=== PATIENT | female | born 1960 | race Caucasian/White ===

== ENCOUNTER 2018-08-20 19:55 | Emergency (ER) | payer BC, SELFPAY ==
[2018-08-20 20:00] VITALS: BP 161/66; PULSE 78; RESP 18; TEMP 36.6; O2SAT 96
--- NOTE | 2018-08-20 20:38 | W.ED.GENAD ---
Discharge Plan Disposition Patient Disposition: HOME Condition: Good Discharge Details Chief Complaint: RespSymp Clinical Impression: Upper respiratory infection, viral Primary Care Provider: Brittney Mitchell ED Provider: Cristian Miranda Meds and New Rx's Prescriptions: New albuterol sulfate 90 mcg/actuation HFA aerosol inhaler 2 puff IH Q6H PRN (Reason: shortness of breath) Qty: 8 RF: 0 Continue glucosamine HOt-lcn-drwckowsuc 1 EACH tablet 1 ea PO DAILY RF: 0 blood sugar diagnostic [FreeStyle Lite Strips] 1 EACH strip 1 ea Miscellaneous DAILY Qty: 100 RF: 4 naproxen 500 MG tablet 500 mg PO Q12H PRN Qty: 60 RF: 2 lancets [FreeStyle Lancets] 1 EACH misc 1 ea Miscellaneous DAILY Qty: 100 RF: 4 cetirizine 10 MG tablet 10 mg PO DAILY Qty: 30 RF: 3 omeprazole 40 MG capsule,delayed release(DR/EC) 40 mg PO DAILY Qty: 90 RF: 4 levothyroxine 50 MCG tablet 50 mcg PO DAILY Qty: 90 RF: 4 metformin 500 MG tablet 500 mg PO BID Qty: 180 RF: 3 pravastatin 20 MG tablet 20 mg PO DAILY Qty: 90 RF: 3 mometasone [Nasonex] 17 GM spray,non-aerosol 2 spry NU PRN PRNRF: 0 Discharge Instructions Instructions: Upper Respiratory Infection (ED) Additional Instructions: EKG, chest x-ray, laboratory studies look fine. Probably have a viral URI. You may use the albuterol inhaler as needed for cough/shortness of breath. Use Motrin or Tylenol for pain as needed. Follow-up with primary care next week if not better. Return to ED if worse. Stand Alone Forms: Work Release Referrals: Brittney Mitchell NP [Primary Care Provider] - Discharge Data Discharge Date/Time-TO BE ENTERED AT DEPARTURE: 08/20/18 23:50 Medical Decision Making Patient presenting with what sounds like URI symptoms likely viral. However, she is complaining of shortness of breath and pleuritic pain. She is also diabetic. Elected to check labs including d-dimer and troponin. Initial EKG that was done was abnormal but looked similar to EKG of another patient who had the same machine used. When using a different machine the patient's EKG was essentially normal and unchanged from previous. She was given a DuoNeb treatment which helped. She was sent for chest x-ray which is read as negative. Laboratory studies show a negative d-dimer and a negative troponin and other labs ok. Potassium a little low. She did feel that DuoNeb treatment helped with her breathing. She will be sent home with instructions to use an albuterol inhaler every 4-6 hours as needed. Pukg-ehu-lcmeong cold medicine for symptoms. Rest and stay hydrated. Follow-up with primary care if not better next week. Return to ED if worse. Lab Data Lab results reviewed: Yes I reviewed the patient's lab results. ECG Data Attestation: I personally reviewed and interpreted this ECG (s) as follows: Interpretation: Initial EKG was suggestive of ST depression in the lateral limb leads with some elevation and biphasic T waves precordially. However, this EKG looks strangely similar to EKG of another patient. EKG was obtained with a different machine this EKG showed sinus rhythm at 83 with normal axis and intervals and some mild nonspecific ST changes which were unchanged from previous EKG. HPI General Mode of arrival: ambulatory. Date/Time Provider Initiated Documentation: 08/20/18 20:13. Limitations to Documentation: no limitations. Information obtained by: patient. HPI Narrative: Patient presents to ED with complaints of sinus pressure, congestion, cough, shortness of breath. She does not think she has had a fever but is not sure. She denies any sputum production. She does have a little bit of a sore throat. She has chest pain with cough and deep breathing. She feels a little short of breath and cannot take a deep breath. She denies any abdominal pain or GI symptoms. She denies any leg pain or swelling. She has no previous history of clots. She is not a smoker. She does not have a history of asthma. Related Data Home Medications Medication Instructions Recorded Confirmed glucosamine [id number] 1 ea PO DAILY 03/27/14 08/20/18 blood sugar diagnostic [FreeStyle #100 strip 11/25/15 08/20/18 Lite Strips] lancets [FreeStyle Lancets] #100 ea 11/25/15 08/20/18 naproxen 500 mg PO Q12H PRN #60 tab-cap 11/25/15 08/20/18 cetirizine 10 mg PO DAILY #30 tab-cap 12/18/17 08/20/18 omeprazole 40 mg PO DAILY #90 tab-cap 12/18/17 08/20/18 levothyroxine 50 mcg PO DAILY #90 tab 12/24/17 08/20/18 metformin 500 mg PO BID #180 tab-cap 12/24/17 08/20/18 pravastatin 20 mg PO DAILY #90 tab-cap 01/09/18 08/20/18 albuterol sulfate 2 puff IH Q6H PRN #8 gm 08/20/18 mometasone [Nasonex] 2 spry NU PRN PRN 08/20/18 08/20/18 Previous Rx's Medication Instructions Recorded cetirizine 10 mg PO DAILY #30 tab-cap 12/18/17 omeprazole 40 mg PO DAILY #90 tab-cap 12/18/17 levothyroxine 50 mcg PO DAILY #90 tab 12/24/17 metformin 500 mg PO BID #180 tab-cap 12/24/17 pravastatin 20 mg PO DAILY #90 tab-cap 01/09/18 albuterol sulfate 2 puff IH Q6H PRN #8 gm 08/20/18 Allergies Allergy/AdvReac Type Severity Reaction Status Date / Time amoxicillin trihydrate Allergy Severe Anaphylaxsi Unverified 08/20/18 23:34 [From Augmentin] s Egg Derived Allergy Severe Topical Unverified 08/20/18 23:34 Irritation Fish Containing Products Allergy Severe Anaphylaxsi Unverified 08/20/18 23:34 s iodine Allergy Severe Anaphylaxsi Unverified 08/20/18 23:34 s Penicillins Allergy Severe Anaphylaxsi Unverified 08/20/18 23:34 s potassium clavulanate Allergy Severe Anaphylaxsi Unverified 08/20/18 23:34 [From Augmentin] s shellfish derived Allergy Severe Anaphylaxsi Unverified 08/20/18 23:34 s Tetanus Vaccines and Toxoid Allergy Severe ARM Unverified 08/20/18 23:34 [Tetanus Vaccines \E&E\ SWELLING Toxoid] fexofenadine HCl Allergy Intermediate eye Unverified 08/20/18 23:34 [From Tiffani] swelling Sulfa (Sulfonamide Allergy Intermediate Swelling/Ed Unverified 08/20/18 23:34 Antibiotics) zulay venom-honey bee Allergy Intermediate Swelling/Ed Unverified 08/20/18 23:34 zulay codeine AdvReac Severe upset Unverified 08/20/18 23:34 stomach, dizzy lisinopril AdvReac Severe COUGH Unverified 08/20/18 23:34 fish Allergy Severe Anaphylaxsi Uncoded 08/20/18 23:34 s General Stated Complaint: RespSymp HERMAN: 3 Review of Systems Constitutional Denies chills, Reports fatigue, Denies fever(s), Denies headache(s), Denies malaise and Denies weakness Eyes Denies change in vision, Denies eye discharge and Denies eye pain ENT Denies otalgia, Denies facial pain, Denies headache(s), Denies hoarseness, Reports nasal congestion, Reports post nasal drip, Reports sinus pressure and Denies sore throat Cardiovascular Reports chest pain (with cough/deep breath), Denies syncope, Denies pedal edema, Denies edema, Denies palpitations and Reports dyspnea Respiratory Reports chest congestion, Reports cough and Reports dyspnea Gastrointestinal Denies abdominal pain, Denies nausea and Denies vomiting Musculoskeletal Denies back pain, Denies myalgias, Denies arthralgias and Denies numbness Integumentary/Breasts Denies rash Neurologic Denies syncope, Denies headache(s), Denies numbness and Denies weakness Endocrine Reports fatigue and Denies palpitations PFSH Family History Mother Aneurysm Cerebrovascular accident Father Neoplasm Brother Diabetes Essential hypertension Hyperlipidemia Cerebrovascular accident Grandfather Diabetes Heart disease Myocardial infarction Grandfather Diabetes Essential hypertension Myocardial infarction Grandmother Essential hypertension Mental disorder Cerebrovascular accident Grandmother Emphysema lung Medical History Hypothyroid (Chronic) Diabetes GERD (gastroesophageal reflux disease) Hyperlipidemia associated with type 2 diabetes mellitus Hypertension Social History Smoking/Tobacco Use Status: Never Surgical History Cholecystectomy (~1989) ELBOW SURGERY (~1994) WRIST SURGERY (~1986) Exam Const General: cooperative and comfortable Orientation: alert and oriented x3 HENMT Head: normocephalic and atraumatic Ears: TM's normal bilaterally General nose exam: external nose normal Mouth: oral mucosae normal Throat: posterior oropharynx normal Eyes Conjunctivae: conjunctivae normal Neck Neck: normal visual inspection, trachea midline and supple Lymphatic: no lymphadenopathy noted Resp Effort & Inspection: normal respiratory effort Auscultation: clear to auscultation bilaterally Cardio Rate: regular rate Rhythm: regular rhythm Heart Sounds: S1 normal and S2 normal GI Palpation: soft, not firm and nontender Skin General skin exam: no rashes or lesions noted Neuro General: alert, oriented x3, CN's II-XI intact bilaterally and normal sensation to monofilament Extrem General: no calf tenderness Course Vital Signs Temperature 97.9 F 08/20/18 20:00 Pulse 78 08/20/18 20:00 Respiratory Rate 18 08/20/18 20:00 Blood Pressure 161/66 H 08/20/18 20:00 Pulse Oximetry 96 08/20/18 20:00 Temperature 97.9 F 08/20/18 20:00 Temperature Source Skin 08/20/18 20:00 Pulse 78 08/20/18 20:00 Respiratory Rate 18 08/20/18 20:00 Respiratory Effort 08/20/18 20:07 Respiratory Depth Normal 08/20/18 20:07 Blood Pressure 161/66 H 08/20/18 20:00 Blood Pressure Position Sitting 08/20/18 20:00 Pulse Oximetry 96 08/20/18 20:00 Oxygen Delivery Method Room Air 08/20/18 20:00 Oxygen Flow Rate 0 08/20/18 20:00
--- NOTE | 2018-08-20 21:18 | DI.RAD_ITS ---
SYMPTOMS/DIAGNOSIS: CHEST PAIN, SHORTNESS OF BREATH, COUGH PA AND LATERAL CHEST: Comparison is made with January,. The heart is mildly enlarged, unchanged. The lungs are suboptimally inflated but appear clear. No infiltrate , effusion or pulmonary edema is seen. IMPRESSION: Cardiomegaly, no acute abnormality.
[2018-08-20 21:36] LABS: Abs Immature Grans 0.01 k/cumm (0.0-0.09); Absolute Basophil Count 0.02 k/cumm (0.0-0.2); Absolute Eosinophil Count 0.29 k/cumm (0.0-0.7); Absolute Lymphocyte Count 1.26 k/cumm (1.2-3.4); Absolute Monocyte Count 0.58 k/cumm (0.11-0.7); Absolute Neutrophil Count 6.11 k/cumm (1.2-6.7); Basophils % 0.2; Eosinophils % 3.5; HGB 13.5 g/dL (12.0-15.5); Immature Grans % 0.1; Lymphocytes % 15.2; Mean Corp. HGB Concentration 33.8 g/dL (32.0-36.0); Mean Corpuscular Hemoglobin 28.7 pg (27.0-33.0); Mean Corpuscular Volume 85.1 fL (80-95); Mean Platelet Volume 11.6 fL (8.0-11.0); Platelet Count 150 x1000/uL (130-400); RBC Distribution Width 13.2 % (11.7-14.6); White Blood Cell Count 8.27 k/cumm (4.4-10.8)
[2018-08-20 21:50] LABS: Anion Gap 10.3 mmol/L (3-11); BUN 14 mg/dL (7-18); CO2 28.7 mmol/L (21.0-32.0); CREATININE 0.73 mg/dL (0.55-1.02); Calcium 8.9 mg/dL (8.5-10.1); Chloride 98 mmol/L (98-107); Glucose 193 mg/dL (70-100); Potassium 3.1 mmol/L (3.5-5.1); Sodium 137 mmol/L (136-145)
--- NOTE | 2018-08-20 21:59 | DI.VRAD_ITS ---
EXAM: XR Chest, 2 Views EXAM DATE/TIME: 08/20/2018 9:20 PM CLINICAL HISTORY: 58 years old, female; Signs and symptoms; Other: Cp/sob, cough TECHNIQUE: XR of the chest, 2 views. COMPARISON: CR CHEST 2 VIEWS PA,LAT 02/25/2018 11:42 AM FINDINGS: Lungs: Clear lungs. Pleural space: No pneumothorax. No sizable pleural effusion. Heart/Mediastinum: No cardiomegaly. Bones/joints: Unremarkable. IMPRESSION: Clear lungs. Dictated and Authenticated by: Noé Monroe MD. Ordering:MARSHALL VARGAS MD
[2018-08-20 22:02] LABS: Troponin I < 0.02 ng/mL (0.00-0.06)
[2018-08-20 22:07] VITALS: RESP 8
[2018-08-20] MEDS: Ibuprofen 600 MG TAB PO (22:07)
[2018-08-20] MEDS: Albuterol/Ipratropium 3 ML UPD VIAL UPD (22:07)
[2018-08-20 22:41] LABS: D-Dimer 281 ng/mlFEU (<500)
[2018-08-20] MEDS: Albuterol HFA 8 GM 60 PUFF INH IH (23:42)
--- NOTE | 2018-08-20 23:46 | ED.GENADUL_ITS ---
Discharge Plan Disposition Patient Disposition: HOME Condition: Good Discharge Details Chief Complaint: RespSymp Clinical Impression: Upper respiratory infection, viral Primary Care Provider: Brittney Mitchell ED Provider: Cristian Miranda Meds and New Rx's Prescriptions: New albuterol sulfate 90 mcg/actuation HFA aerosol inhaler 2 puff IH Q6H PRN (Reason: shortness of breath) Qty: 8 RF: 0 Continue glucosamine [id number]-cbo-onveqrmksb 1 EACH tablet 1 ea PO DAILY RF: 0 blood sugar diagnostic [FreeStyle Lite Strips] 1 EACH strip 1 ea Miscellaneous DAILY Qty: 100 RF: 4 naproxen 500 MG tablet 500 mg PO Q12H PRN Qty: 60 RF: 2 lancets [FreeStyle Lancets] 1 EACH misc 1 ea Miscellaneous DAILY Qty: 100 RF: 4 cetirizine 10 MG tablet 10 mg PO DAILY Qty: 30 RF: 3 omeprazole 40 MG capsule,delayed release(DR/EC) 40 mg PO DAILY Qty: 90 RF: 4 levothyroxine 50 MCG tablet 50 mcg PO DAILY Qty: 90 RF: 4 metformin 500 MG tablet 500 mg PO BID Qty: 180 RF: 3 pravastatin 20 MG tablet 20 mg PO DAILY Qty: 90 RF: 3 mometasone [Nasonex] 17 GM spray,non-aerosol 2 spry NU PRN PRNRF: 0 Discharge Instructions Instructions: Upper Respiratory Infection (ED) Additional Instructions: EKG, chest x-ray, laboratory studies look fine. Probably have a viral URI. You may use the albuterol inhaler as needed for cough/shortness of breath. Use Motrin or Tylenol for pain as needed. Follow-up with primary care next week if not better. Return to ED if worse. Stand Alone Forms: Work Release Referrals: Brittney Mitchell NP [Primary Care Provider] - Discharge Data Discharge Date/Time-TO BE ENTERED AT DEPARTURE: 08/20/18 23:50 Medical Decision Making Patient presenting with what sounds like URI symptoms likely viral. However, she is complaining of shortness of breath and pleuritic pain. She is also diabetic. Elected to check labs including d-dimer and troponin. Initial EKG that was done was abnormal but looked similar to EKG of another patient who had the same machine used. When using a different machine the patient's EKG was essentially normal and unchanged from previous. She was given a DuoNeb treatment which helped. She was sent for chest x-ray which is read as negative. Laboratory studies show a negative d-dimer and a negative troponin and other labs ok. Potassium a little low. She did feel that DuoNeb treatment helped with her breathing. She will be sent home with instructions to use an albuterol inhaler every 4-6 hours as needed. Over-the- counter cold medicine for symptoms. Rest and stay hydrated. Follow-up with primary care if not better next week. Return to ED if worse. Lab Data Lab results reviewed: Yes I reviewed the patient's lab results. ECG Data Attestation: I personally reviewed and interpreted this ECG (s) as follows: Interpretation: Initial EKG was suggestive of ST depression in the lateral limb leads with some elevation and biphasic T waves precordially. However, this EKG looks strangely similar to EKG of another patient. EKG was obtained with a different machine this EKG showed sinus rhythm at 83 with normal axis and intervals and some mild nonspecific ST changes which were unchanged from previous EKG. HPI General Mode of arrival: ambulatory . Date/Time Provider Initiated Documentation: 08/20/18 20:13 . Limitations to Documentation: no limitations . Information obtained by: patient . HPI Narrative: Patient presents to ED with complaints of sinus pressure, congestion, cough, shortness of breath. She does not think she has had a fever but is not sure. She denies any sputum production. She does have a little bit of a sore throat. She has chest pain with cough and deep breathing. She feels a little short of breath and cannot take a deep breath. She denies any abdominal pain or GI symptoms. She denies any leg pain or swelling. She has no previous history of clots. She is not a smoker. She does not have a history of asthma. Related Data Home Medications Medication Instructions Recorded Confirmed glucosamine [id number]-qblwopujnv 1 ea PO DAILY 03/27/14 08/20/18 blood sugar diagnostic [FreeStyle #100 strip 11/25/15 08/20/18 Lite Strips] lancets [FreeStyle Lancets] #100 ea 11/25/15 08/20/18 naproxen 500 mg PO Q12H PRN #60 tab-cap 11/25/15 08/20/18 cetirizine 10 mg PO DAILY #30 tab-cap 12/18/17 08/20/18 omeprazole 40 mg PO DAILY #90 tab-cap 12/18/17 08/20/18 levothyroxine 50 mcg PO DAILY #90 tab 12/24/17 08/20/18 metformin 500 mg PO BID #180 tab-cap 12/24/17 08/20/18 pravastatin 20 mg PO DAILY #90 tab-cap 01/09/18 08/20/18 albuterol sulfate 2 puff IH Q6H PRN #8 gm 08/20/18 mometasone [Nasonex] 2 spry NU PRN PRN 08/20/18 08/20/18 Previous Rx's Medication Instructions Recorded cetirizine 10 mg PO DAILY #30 tab-cap 12/18/17 omeprazole 40 mg PO DAILY #90 tab-cap 12/18/17 levothyroxine 50 mcg PO DAILY #90 tab 12/24/17 metformin 500 mg PO BID #180 tab-cap 12/24/17 pravastatin 20 mg PO DAILY #90 tab-cap 01/09/18 albuterol sulfate 2 puff IH Q6H PRN #8 gm 08/20/18 Allergies Allergy/AdvReac Type Severity Reaction Status Date / Time amoxicillin trihydrate Allergy Severe Anaphylaxsi Unverified 08/20/18 23:34 [From Augmentin] s Egg Derived Allergy Severe Topical Unverified 08/20/18 23:34 Irritation Fish Containing Products Allergy Severe Anaphylaxsi Unverified 08/20/18 23:34 s iodine Allergy Severe Anaphylaxsi Unverified 08/20/18 23:34 s Penicillins Allergy Severe Anaphylaxsi Unverified 08/20/18 23:34 s potassium clavulanate Allergy Severe Anaphylaxsi Unverified 08/20/18 23:34 [From Augmentin] s shellfish derived Allergy Severe Anaphylaxsi Unverified 08/20/18 23:34 s Tetanus Vaccines and Toxoid Allergy Severe ARM Unverified 08/20/18 23:34 [Tetanus Vaccines \E&E\ SWELLING Toxoid] fexofenadine HCl Allergy Intermediate eye Unverified 08/20/18 23:34 [From Tiffani] swelling Sulfa (Sulfonamide Allergy Intermediate Swelling/Ed Unverified 08/20/18 23:34 Antibiotics) zulay venom-honey bee Allergy Intermediate Swelling/Ed Unverified 08/20/18 23:34 zulay codeine AdvReac Severe upset Unverified 08/20/18 23:34 stomach, dizzy lisinopril AdvReac Severe COUGH Unverified 08/20/18 23:34 fish Allergy Severe Anaphylaxsi Uncoded 08/20/18 23:34 s General Stated Complaint: RespSymp HERMAN: 3 Review of Systems Constitutional Denies chills, Reports fatigue, Denies fever(s), Denies headache(s), Denies malaise and Denies weakness Eyes Denies change in vision, Denies eye discharge and Denies eye pain ENT Denies otalgia, Denies facial pain, Denies headache(s), Denies hoarseness, Reports nasal congestion, Reports post nasal drip, Reports sinus pressure and Denies sore throat Cardiovascular Reports chest pain (with cough/deep breath), Denies syncope, Denies pedal edema , Denies edema, Denies palpitations and Reports dyspnea Respiratory Reports chest congestion, Reports cough and Reports dyspnea Gastrointestinal Denies abdominal pain, Denies nausea and Denies vomiting Musculoskeletal Denies back pain, Denies myalgias, Denies arthralgias and Denies numbness Integumentary/Breasts Denies rash Neurologic Denies syncope, Denies headache(s), Denies numbness and Denies weakness Endocrine Reports fatigue and Denies palpitations PFSH Family History Mother Aneurysm Cerebrovascular accident Father Neoplasm Brother Diabetes Essential hypertension Hyperlipidemia Cerebrovascular accident Grandfather Diabetes Heart disease Myocardial infarction Grandfather Diabetes Essential hypertension Myocardial infarction Grandmother Essential hypertension Mental disorder Cerebrovascular accident Grandmother Emphysema lung Medical History Hypothyroid (Chronic) Diabetes GERD (gastroesophageal reflux disease) Hyperlipidemia associated with type 2 diabetes mellitus Hypertension Social History Smoking/Tobacco Use Status: Never Surgical History Cholecystectomy (~1989) ELBOW SURGERY (~1994) WRIST SURGERY (~1986) Exam Const General: cooperative and comfortable Orientation: alert and oriented x3 HENMT Head: normocephalic and atraumatic Ears: TM's normal bilaterally General nose exam: external nose normal Mouth: oral mucosae normal Throat: posterior oropharynx normal Eyes Conjunctivae: conjunctivae normal Neck Neck: normal visual inspection, trachea midline and supple Lymphatic: no lymphadenopathy noted Resp Effort & Inspection: normal respiratory effort Auscultation: clear to auscultation bilaterally Cardio Rate: regular rate Rhythm: regular rhythm Heart Sounds: S1 normal and S2 normal GI Palpation: soft, not firm and nontender Skin General skin exam: no rashes or lesions noted Neuro General: alert, oriented x3, CN's II-XI intact bilaterally and normal sensation to monofilament Extrem General: no calf tenderness Course Vital Signs Temperature 97.9 F 08/20/18 20:00 Pulse 78 08/20/18 20:00 Respiratory Rate 18 08/20/18 20:00 Blood Pressure 161/66 H 08/20/18 20:00 Pulse Oximetry 96 08/20/18 20:00 Temperature 97.9 F 08/20/18 20:00 Temperature Source Skin 08/20/18 20:00 Pulse 78 08/20/18 20:00 Respiratory Rate 18 08/20/18 20:00 Respiratory Effort 08/20/18 20:07 Respiratory Depth Normal 08/20/18 20:07 Blood Pressure 161/66 H 08/20/18 20:00 Blood Pressure Position Sitting 08/20/18 20:00 Pulse Oximetry 96 08/20/18 20:00 Oxygen Delivery Method Room Air 08/20/18 20:00 Oxygen Flow Rate 0 08/20/18 20:00
== END 2018-08-20 23:50 | disposition home or self-care (01) ==
PROVIDERS: Emergency Provider Emergency Medicine; PCP Nurse Practitioner Family
DX: J06.9 Acute upper respiratory infection, unspecified (principal); E87.6 Hypokalemia; E11.9 Type 2 diabetes mellitus without complications; Z79.84 Long term (current) use of oral hypoglycemic drugs; I10 Essential (primary) hypertension
CPT/HCPCS: 36415; 80048; 93005; 94640; 99285; 71046; 84484; 85025; 85379; 93010; J7620

== ENCOUNTER 2018-08-23 11:32 | Outpatient (REF) | payer BC, SELFPAY | END 2018-08-23 11:52 | LOC: LBN 11:32 | PROVIDERS: PCP Nurse Practitioner Family; Visit Provider Nurse Practitioner Family | DX: R05 Cough (principal) | CPT/HCPCS: 87449 ==

== ENCOUNTER 2018-08-31 09:02 | Outpatient (CLI) | payer BC, SELFPAY ==
[2018-08-31 09:52] LABS: Anion Gap 9.1 mmol/L (3-11); BUN 10 mg/dL (7-18); CO2 28.9 mmol/L (21.0-32.0); CREATININE 0.79 mg/dL (0.55-1.02); Calcium 8.6 mg/dL (8.5-10.1); Chloride 102 mmol/L (98-107); Cholesterol 191 mg/dL (50-200); Glucose 164 mg/dL (70-100); HDL Cholesterol 35 mg/dL (40-60); LDL CHOLESTEROL 111 mg/dL (<100); Magnesium 1.8 mg/dL (1.8-2.4); Potassium 3.9 mmol/L (3.5-5.1); Sodium 140 mmol/L (136-145); Triglyceride 275 mg/dL (30-150); Vitamin B12 580 pg/mL (193-986)
== END 2018-08-31 09:22 ==
PROVIDERS: PCP Nurse Practitioner Family; Visit Provider Nurse Practitioner Family
DX: E11.9 Type 2 diabetes mellitus without complications (principal); E78.5 Hyperlipidemia, unspecified; I10 Essential (primary) hypertension
CPT/HCPCS: 36415; 80048; 80061; 83721; 82607; 83036; 83735

== ENCOUNTER 2019-03-02 09:10 | Outpatient (CLI) | payer BC, SELFPAY ==
[2019-03-02 10:29] LABS: Anion Gap 10.3 mmol/L (3-11); BUN 13 mg/dL (7-18); CO2 28.7 mmol/L (21.0-32.0); Calcium 8.8 mg/dL (8.5-10.1); Chloride 102 mmol/L (98-107); Glucose 150 mg/dL (70-100); Potassium 4.1 mmol/L (3.5-5.1); Sodium 141 mmol/L (136-145)
[2019-03-03 10:58] LABS: Cholesterol 207 mg/dL (50-200); HDL Cholesterol 41 mg/dL (40-60); LDL CHOLESTEROL 125 mg/dL (<100); TSH 1.81 uIU/mL (0.358-3.74); Triglyceride 226 mg/dL (30-150)
[2019-03-03 11:18] LABS: FREE T4 1.22 ng/dL (0.76-1.46)
== END 2019-03-02 09:30 ==
PROVIDERS: PCP Nurse Practitioner Family; Visit Provider Nurse Practitioner Family
DX: E11.9 Type 2 diabetes mellitus without complications (principal); E03.9 Hypothyroidism, unspecified; E78.5 Hyperlipidemia, unspecified
CPT/HCPCS: 36415; 80048; 80061; 83721; 83036; 84439; 84443

== ENCOUNTER 2019-07-09 14:08 | Outpatient (CLI) | payer BC, SELFPAY ==
[2019-07-09 14:52] LABS: Abs Immature Grans 0.01 k/cumm (0.0-0.09); Absolute Basophil Count 0.02 k/cumm (0.0-0.2); Absolute Eosinophil Count 0.22 k/cumm (0.0-0.7); Absolute Lymphocyte Count 1.88 k/cumm (1.2-3.4); Absolute Monocyte Count 0.42 k/cumm (0.11-0.7); Basophils % 0.3; Eosinophils % 3.5; HCT 39.1 % (36.0-46.0); HGB 13.1 g/dL (12.0-15.5); Immature Grans % 0.2; Lymphocytes % 29.6; Mean Corp. HGB Concentration 33.5 g/dL (32.0-36.0); Mean Corpuscular Hemoglobin 28.8 pg (27.0-33.0); Mean Corpuscular Volume 85.9 fL (80-95); Mean Platelet Volume 11.6 fL (8.0-11.0); Monocytes % 6.6; Neutrophils % 59.8; Platelet Count 134 x1000/uL (130-400); RBC 4.55 m/cumm (4.00-5.20); RBC Distribution Width 13.2 % (11.7-14.6); White Blood Cell Count 6.35 k/cumm (4.4-10.8)
[2019-07-09 15:53] LABS: ALT 75 U/L (14-59); AST 63 U/L (15-37); Albumin 3.8 g/dL (3.4-5.0); Alkaline Phosphatase 71 U/L (46-116); Anion Gap 8.9 mmol/L (3-11); BUN 14 mg/dL (7-18); Bilirubin, Total 0.3 mg/dL (0.2-1.0); CO2 28.1 mmol/L (21.0-32.0); CREATININE 0.82 mg/dL (0.55-1.02); Calcium 8.5 mg/dL (8.5-10.1); Chloride 104 mmol/L (98-107); FREE T4 1.13 ng/dL (0.76-1.46); Glucose 182 mg/dL (70-100); Potassium 3.9 mmol/L (3.5-5.1); Sodium 141 mmol/L (136-145); TSH 1.68 uIU/mL (0.36-3.74); Total Protein 6.8 g/dL (6.4-8.2)
[2019-07-09 16:24] LABS: ESR 13 mm/hr (0-30)
[2019-07-10 11:18] LABS: Rheumatoid Factor <8 IU/mL (<12.5)
[2019-07-10 12:02] LABS: Lyme Ab w Rflx to Lyme Confirm Negative
[2019-07-11 23:04] LABS: Anaplasma phagocytophilum Negative (Negative); B. miyamotoi PCR Negative (Negative); Babesia divergens/MO-1 Negative (Negative); Babesia duncani Negative (Negative); Babesia microti Negative (Negative); Ehrlichia chaffeensis Negative (Negative); Ehrlichia ewingii/canis Negative (Negative); Ehrlichia muris eauclairensis Negative (Negative)
== END 2019-07-09 14:28 ==
PROVIDERS: PCP Nurse Practitioner Family; Visit Provider Nurse Practitioner Family
DX: M25.50 Pain in unspecified joint (principal); E11.9 Type 2 diabetes mellitus without complications
CPT/HCPCS: 36415; 80053; 85652; 87798; 84439; 84443; 85025; 86431; 86618

== ENCOUNTER 2020-05-14 09:18 | Outpatient (CLI) | payer OTHER, SELFPAY ==
[2020-05-14 13:16] LABS: ALT 59 U/L (14-59); AST 37 U/L (15-37); Albumin 4.1 g/dL (3.4-5.0); Alkaline Phosphatase 65 U/L (46-116); Anion Gap 10.7 mmol/L (3-11); BUN 17 mg/dL (7-18); Bilirubin, Total 0.5 mg/dL (0.2-1.0); CO2 28.3 mmol/L (21.0-32.0); CREATININE 0.81 mg/dL (0.55-1.02); Calcium 9.2 mg/dL (8.5-10.1); Calculated LDL 124 mg/dL (<100); Chloride 101 mmol/L (98-107); Cholesterol 219 mg/dL (<200); Glucose 154 mg/dL (74-106); HDL Cholesterol 39 mg/dL (40-60); Potassium 3.8 mmol/L (3.5-5.1); Sodium 140 mmol/L (136-145); TSH 2.62 uIU/mL (0.36-3.74); Total Protein 7.1 g/dL (6.4-8.2); Triglyceride 283 mg/dL (<150)
[2020-05-14 13:49] LABS: Hemoglobin A1C 8.4 % (3.8-5.6)
[2020-05-14 13:55] LABS: FREE T4 1.25 ng/dL (0.76-1.46)
== END 2020-05-14 09:38 ==
PROVIDERS: PCP Nurse Practitioner Family; Visit Provider Nurse Practitioner Family
DX: E11.9 Type 2 diabetes mellitus without complications (principal); B35.1 Tinea unguium
CPT/HCPCS: 36415; 80053; 80061; 83036; 84439; 84443

== ENCOUNTER 2020-05-19 11:13 | Outpatient (REF) | payer OTHER, SELFPAY ==
--- NOTE | 2020-05-19 10:40 | PAPFT_PTH ---
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
== END 2020-05-19 11:33 ==
LOC: LBN 11:13
PROVIDERS: PCP Nurse Practitioner Family; Visit Provider Nurse Practitioner Women's Health
DX: Z11.51 Encounter for screening for human papillomavirus (HPV) (principal)
CPT/HCPCS: 88142; 87624

== ENCOUNTER 2020-06-09 02:05 | Outpatient (CLI) | payer OTHER, SELFPAY ==
--- NOTE | 2020-06-09 08:00 | DI.MAMMO_ITS ---
EXAM: MG MAMMO SCREENING CLINICAL HISTORY: screening,z12.39 TECHNIQUE: Bilateral full field digital CC and MLO mammographic images were obtained with 3D tomosyn thesis and utilizing computer aided detection (CAD). COMPARISON: Available for comparison. FINDINGS: Masses/Architectural Distortion: None seen. Microcalcifications: No suspicious pleomorphic-type are seen. Skin Thickening/Nipple Retraction: None. IMPRESSION: 1. No significant interval change with no specific features of malignancy noted. 2. Unless there is more urgent need, screening mammography is recommended, as per [employer] guidelines. BI-RADS Category 1 - Negative Breast Density - Category C - Heterogeneously dense The mammogram demonstrates the patient's breast tissue is dense. Dense breast tissue is very common a nd is not abnormal but dense breast tissue can make it harder to find cancer on a mammogram. Also, de nse breast tissue may increase their breast cancer risk. This information about the result of the [facility] mogram report was provided to the patient to raise their awareness. Use this report when you speak wi th the patient about their risks for breast cancer, which includes their family history. At that time , you may recommend for more screening tests (Ultrasound or MRI) as they might be useful based on the ir risk. A negative radiographic report should not delay biopsy if a dominant or clinically suspicious mass is present. Up to ten percent of cancers are not identified on mammography. A negative report may reinforce clinical impression. Adenosis and dense breasts may obscure an underlying neoplasm. False positive reports average 6 to 10%. Patient will receive a letter notifying them of these results.
== END 2020-06-09 02:25 ==
PROVIDERS: PCP Nurse Practitioner Family; Visit Provider Nurse Practitioner Family
DX: Z12.31 Encounter for screening mammogram for malignant neoplasm of breast (principal); R92.2 Inconclusive mammogram
CPT/HCPCS: 77063; 77067

== ENCOUNTER 2021-02-04 02:33 | Outpatient (CLI) | payer OTHER, SELFPAY ==
[2021-02-04 07:35] LABS: Hemoglobin A1C 6.7 % (<5.7)
[2021-02-04 08:33] LABS: Anion Gap 6.9 mmol/L (3-11); BUN 17 mg/dL (7-18); CO2 30.1 mmol/L (21.0-32.0); CREATININE 0.9 mg/dL (0.55-1.02); Calcium 9.5 mg/dL (8.5-10.1); Chloride 103 mmol/L (98-107); FREE T4 1.33 ng/dL (0.76-1.46); Glucose 125 mg/dL (74-106); Potassium 3.7 mmol/L (3.5-5.1); Sodium 140 mmol/L (136-145); TSH 4.02 uIU/mL (0.36-3.74)
[2021-02-04 08:53] LABS: Calculated LDL 114 mg/dL (<100); Cholesterol 200 mg/dL (<200); HDL Cholesterol 39 mg/dL (40-60); Triglyceride 239 mg/dL (<150)
== END 2021-02-04 02:34 | disposition home or self-care (01) ==
LOC: LBO 02:34
PROVIDERS: PCP Nurse Practitioner Family; Visit Provider Nurse Practitioner Family
DX: E11.9 Type 2 diabetes mellitus without complications (principal); E03.9 Hypothyroidism, unspecified
CPT/HCPCS: 36415; 80048; 80061; 83036; 84439; 84443

== ENCOUNTER 2021-03-18 02:10 | Emergency (ER) | payer OTHER, SELFPAY ==
[2021-03-18 02:13] VITALS: BP 161/66; PULSE 73; RESP 16; TEMP 36.3; O2SAT 97
--- NOTE | 2021-03-18 02:17 | W.ED.GENAD ---
Discharge Plan Disposition Patient Disposition: HOME Condition: Good Discharge Details Clinical Impression: Abdominal pain, vomiting, and diarrhea Primary Care Provider: Brittney Mitchell ED Provider: Cristian Miranda [place] Meds and New Rx's Prescriptions: Continued metformin 500 mg tablet 500 - 1,000 mg PO BID MDD 1000mg Qty: 270 RF: 4 (DME) blood-glucose meter [FreeStyle Lite Meter] Kit See Rx Instructions .ROUTE .MEDSUPPLY Qty: 1 RF: 0 (DME) FreeStyle Lite Strips Strip 1 ea Miscellaneous DAILY Qty: 180 RF: 4 (DME) lancets [FreeStyle Lancets] 28 gauge misc See Rx Instructions .ROUTE .MEDSUPPLY Qty: 180 RF: 4 glucosamine [id number] 1 EACH tablet 1 ea PO DAILY RF: 0 cetirizine 10 mg tablet 10 mg PO DAILY Qty: 30 RF: 3 pravastatin 40 mg tablet 40 mg PO DAILY Qty: 90 RF: 4 terbinafine HCl 250 mg tablet 250 mg PO DAILY Qty: 125 RF: 0 levothyroxine 50 mcg tablet 50 mcg PO DAILY Qty: 90 RF: 4 omeprazole 40 mg capsule,delayed release(DR/EC) 40 mg PO DAILY Qty: 90 RF: 4 Discharge Instructions Instructions: Acute Nausea and Vomiting (ED), Abdominal Pain (ED) Additional Instructions: Laboratory studies look good. CT scan shows no obstruction. Some thickening of the stomach and small bowel suggest enteritis per radiology. Recommend rest and clear liquids for today. Advance diet slowly starting this evening. Follow-up with primary care next week if not improving. Return to ED for worsening abdominal pain, persistent vomiting, fever, other concerns. Stand Alone Forms: Work Release Referrals: Brittney Mitchell, [employer] [Primary Care Provider] - Medical Decision Making Patient with onset of abdominal cramping, vomiting, diarrhea over the last 6 to 8 hours. Progressively getting worse and cramps described as severe. Abdomen mildly tender throughout. No guarding or rebound. Afebrile. History of previous abdominal surgery as well as diabetes. Will place IV and start fluids. Medicate for symptoms. Laboratory studies sent. CT scan ordered due to report of severe cramps and mildly tender exam. 05:30 - Labs look good. Mildly elevated glucose lactic acid. No anion gap or acidosis. Normal white count. Patient feeling much better after fluids and medications. CT scan shows no evidence of obstruction. Some edema of the gastric wall and proximal small bowel suggestive of enteritis per radiology. Patient will be discharged home per her request as she is feeling much better. Off work today to rest as she has been up most of the night. Clear liquid diet. Advance to bland this evening if no issues. Follow-up with primary care next week if still ill. Return to ED for high fever, persistent vomiting, worsening or new abdominal pain. Differential Diagnosis Differential Diagnosis: Gastroenteritis, gastritis, bowel obstruction Lab Data Lab results reviewed: Yes I reviewed the patient's lab results. HPI General Mode of arrival: ambulatory. Date/Time Provider Initiated Documentation: 03/18/21 02:17. Limitations to Documentation: no limitations. Information obtained by: patient, RN notes reviewed and old records reviewed. HPI Narrative: Patient presents to ED with abdominal pain, vomiting and diarrhea onset this evening after dinner. Patient reports feeling fine during the day. Towards the end of the day have to work started to feel little unwell but nothing specific. Had dinner and before bed started to feel nauseated with some stomach discomfort. By 1 AM or so she had developed severe abdominal cramping, watery diarrhea, repeated vomiting. She is not aware of anyone ill that she has been around. No one else who ate dinner is ill. She is fully vaccinated against Covid. She has had previous abdominal surgery. She denies having fever, chest pain, shortness of breath, back pain, urinary symptoms. Cramping pain is described as severe and at times prolonged but not constant. Related Data Home Medications Medication Instructions Recorded Confirmed glucosamine [id number] 1 ea PO DAILY 03/27/14 03/18/21 cetirizine 10 mg tablet 10 mg PO DAILY #30 tab-cap 03/07/19 03/18/21 blood sugar diagnostic #180 strip 07/09/19 08/31/20 blood-glucose meter #1 each 07/09/19 08/31/20 lancets 28 gauge #180 each 07/09/19 08/31/20 pravastatin 40 mg tablet 40 mg PO DAILY #90 tab-cap 05/17/20 03/18/21 terbinafine HCl 250 mg tablet 250 mg PO DAILY #125 tab 05/27/20 03/18/21 metformin 500 mg tablet 500 - 1,000 mg PO BID #270 tab MDD 06/21/20 03/18/21 1000mg levothyroxine 50 mcg tablet 50 mcg PO DAILY #90 tab 02/04/21 03/18/21 omeprazole 40 mg capsule,delayed 40 mg PO DAILY #90 tab-cap 02/07/21 03/18/21 release Previous Rx's Medication Instructions Recorded cetirizine 10 mg tablet 10 mg PO DAILY #30 tab-cap 03/07/19 blood sugar diagnostic #180 strip 07/09/19 blood-glucose meter #1 each 07/09/19 lancets 28 gauge #180 each 07/09/19 pravastatin 40 mg tablet 40 mg PO DAILY #90 tab-cap 05/17/20 terbinafine HCl 250 mg tablet 250 mg PO DAILY #125 tab 05/27/20 metformin 500 mg tablet 500 - 1,000 mg PO BID #270 tab MDD 06/21/20 1000mg levothyroxine 50 mcg tablet 50 mcg PO DAILY #90 tab 02/04/21 omeprazole 40 mg capsule,delayed 40 mg PO DAILY #90 tab-cap 02/07/21 release Allergies Allergy/AdvReac Type Severity Reaction Status Date / Time amoxicillin trihydrate Allergy Severe Anaphylaxsi Verified 03/18/21 02:15 [From Augmentin] s Egg Derived Allergy Severe Topical Verified 03/18/21 02:15 Irritation Fish Containing Products Allergy Severe Anaphylaxsi Verified 03/18/21 02:15 s iodine Allergy Severe Anaphylaxsi Verified 03/18/21 02:15 s Penicillins Allergy Severe Anaphylaxsi Verified 03/18/21 02:15 s potassium clavulanate Allergy Severe Anaphylaxsi Verified 03/18/21 02:15 [From Augmentin] s shellfish derived Allergy Severe Anaphylaxsi Verified 03/18/21 02:15 s Tetanus Vaccines and Toxoid Allergy Severe ARM Verified 03/18/21 02:15 [Tetanus Vaccines \E&E\ SWELLING Toxoid] fexofenadine HCl Allergy Intermediate eye Verified 03/18/21 02:15 [From Tiffani] swelling Sulfa (Sulfonamide Allergy Intermediate Swelling/Ed Verified 03/18/21 02:15 Antibiotics) zulay venom-honey bee Allergy Intermediate Swelling/Ed Verified 03/18/21 02:15 zulay codeine AdvReac Severe upset Verified 03/18/21 02:15 stomach, dizzy lisinopril AdvReac Severe COUGH Verified 03/18/21 02:15 fish Allergy Severe Anaphylaxsi Uncoded 03/18/21 02:15 s General Stated Complaint: Nausea/Vomit/Diar HERMAN: 3 Review of Systems Narrative: 08/11 Review of Systems completed and is negative except as stated above in HPI (Systems reviewed: Const, Eyes, ENT, Resp, CV, GI, , MSK, Skin, Neuro) PFS Medical History Allergic rhinitis Essential hypertension GERD (gastroesophageal reflux disease) Hyperlipidemia Hypothyroidism Obstructive sleep apnea PSG 2014, CPAP Type 2 diabetes mellitus Surgical History H/O elbow surgery (~1994) Left S/P cholecystectomy (~1989) S/P wrist surgery (~1986) Right Family History (Updated 06/21/20 @ 09:21 by Brittney Mitchell NP) Mother , at 54 of brain aneurysm Brain aneurysm Father , at 65 of lung cancer Lung cancer Heart disease Myocardial infarction Brother Essential hypertension Hyperlipidemia Stroke Type 2 diabetes mellitus Dementia Heart disease Maternal Grandfather , at 72 of PR Heart disease Myocardial infarction Type 2 diabetes mellitus Maternal Grandmother , at 98 Dementia Essential hypertension Stroke Paternal Grandfather Heart disease Paternal Grandmother , at 69 from emphysema Emphysema lung Social History Smoking/Tobacco Use Status: Never Smoking risk assessment performed?: Yes Alcohol Intake: never Drug use: Never Do you feel safe at home: Yes Do you feel safe in your relationship?: Yes Female Reproductive History Menstrual Menopause type: natural Exam Narrative Exam Narrative: Const: Obese female in NAD. HEENT: NC/AT. Normal facial exam. Eyes: Normal conjunctiva and sclera. Neck: Supple. Trachea midline. Lungs: Normal respiratory effort. Lungs are clear. Cor: RRR without murmur/gallop. Good radial pulses. GI: Soft and ND. Mild diffuse tenderness. No guarding or rebound. Neuro: A+O x 3. Normal speech, mentation, gait. Cranial nerves II - XII grossly intact. No gross motor or sensory deficit. Ext: No C/C/E. Skin: Warm and dry without rash. Course Vital Signs Vital signs: Vital Signs Temperature 97.3 F L 05/21/21 02:13 Pulse 73 03/18/21 02:13 Respiratory Rate 16 03/18/21 02:13 Blood Pressure 161/66 H 03/18/21 02:13 Pulse Oximetry 97 03/18/21 02:13 Temperature 97.3 F L 03/18/21 02:13 Pulse 73 03/18/21 02:13 Respiratory Rate 16 03/18/21 02:13 Respiratory Effort Non-Labored 03/18/21 02:16 Blood Pressure 161/66 H 03/18/21 02:13 Blood Pressure Position Sitting 03/18/21 02:13 Pulse Oximetry 97 03/18/21 02:13 Oxygen Delivery Method Room Air 03/18/21 02:13 Oxygen Flow Rate 0 03/18/21 02:13
[2021-03-18] MEDS: Lactated Ringers 1,000 ML 1000 ML IV (02:35)
[2021-03-18] MEDS: Prochlorperazine 10 MG/2 ML VIAL (02:41)
[2021-03-18] MEDS: Ketorolac 15 MG/ML VIAL (02:41)
[2021-03-18 03:24] LABS: BE (Venous) 3 mmol/L (-2-3); HCO3 (Venous) 29 mmol/L (23-28); O2 Sat (Venous) 57 %; TCO2 (Venous) 26 mmol/L (24-29); pCO2 (Venous) 52 mmHg (41-51); pH (Venous) 7.35 (7.31-7.41); pO2 (Venous) 30 mmHg
[2021-03-18 03:27] LABS: Lactate 2.3 mmol/L (0.6-1.4)
[2021-03-18 03:40] LABS: Abs Immature Grans 0.02 10^3/uL (0.0-0.06); Absolute Basophil Count 0.03 10^3/uL (0.0-0.2); Absolute Eosinophil Count 0.28 10^3/uL (0.0-0.7); Absolute Lymphocyte Count 0.59 10^3/uL (1.2-3.4); Absolute Monocyte Count 0.52 10^3/uL (0.1-0.8); Absolute Neutrophil Count 6.08 10^3/uL (1.2-6.7); Basophils % 0.4; Eosinophils % 3.7; HCT 42.3 % (36.0-46.0); HGB 14.2 g/dL (11.2-15.7); Immature Grans % 0.3; Lymphocytes % 7.8; MCHC 33.6 % (32.0-36.0); MCV 86.3 fL (80-95); Monocytes % 6.9; Neutrophils % 80.9; Nucleated RBC 0 %; Platelet Count 134 10^3/uL (130-400); RDW 13.3 % (11.7-14.6); RDW-SD 42.3 fL; WBC 7.52 10^3/uL (4.4-10.8)
[2021-03-18 03:49] LABS: ALT 54 U/L (14-59); AST 52 U/L (15-37); Albumin 4.2 g/dL (3.4-5.0); Alkaline Phosphatase 73 U/L (46-116); BUN 17 mg/dL (7-18); Bilirubin, Total 0.6 mg/dL (0.2-1.0); CREATININE 0.9 mg/dL (0.55-1.02); Calcium 8.5 mg/dL (8.5-10.1); Chloride 102 mmol/L (98-107); Glucose 167 mg/dL (74-106); Potassium 3.7 mmol/L (3.5-5.1); Sodium 142 mmol/L (136-145); Total Protein 7.8 g/dL (6.4-8.2)
[2021-03-18 04:00] LABS: Lipase 108 U/L (73-393)
--- NOTE | 2021-03-18 04:11 | DI.CT_ITS ---
Exam(s) CT ABDOMEN PELVIS WO EXAM: CT ABDOMEN PELVIS WO INDICATION: pain, vomiting. COMPARISON: No exams were available for comparison TECHNIQUE: CT examination was performed without contrast administration. FINDINGS: Images obtained through the lung bases are unremarkable. Note is made of coronary artery calcifications. Visualized portions of the liver and spleen appear intact. There is question of mild gastric wall thickening and wall thickening of proximal small bowel, consid er enteritis. No evidence of obstruction. Normal appendix. No diverticulitis. Visualized portions of the pancreas are unremarkable. Prior cholecystectomy noted. No biliary dilatation. Abdominal aorta is of normal diameter. No significant abdominal wall hernia. No significant abdominal or pelvic adenopathy. Adrenals appear normal bilaterally. The kidneys are normal in size and shape. There is no evidence of a renal mass, hydronephrosis, or n ephrolithiasis. No ureteral dilatation or calcification identified. Urinary bladder is unremarkable in appearance. IMPRESSION: Questionable wall thickening of stomach and proximal small bowel, consider enteritis. No focal findi ngs. RADIATION DOSE DELIVERED: 1,423.15mGy.cm DLP 1,423.15mGy.cm Total DLP RADIATION OPTIMIZATION: All CT scans at this facility use at least one of these dose optimization te chniques: automated exposure control; mA and/or kV adjustment per patient size (includes targeted exa ms where dose is matched to clinical indication); or iterative reconstruction.
[2021-03-18 04:22] VITALS: BP 142/68; PULSE 73; RESP 16; O2SAT 96
[2021-03-18 05:31] VITALS: BP 142/68; PULSE 73; RESP 16; TEMP 36.3; O2SAT 96
--- NOTE | 2021-03-23 22:12 | NUR.NOTE ---
Nursing Note: in chart to update medication documentation.
== END 2021-03-18 05:30 | disposition home or self-care (01) ==
PROVIDERS: Emergency Provider Emergency Medicine; PCP Nurse Practitioner Family
DX: R19.7 Diarrhea, unspecified (principal); R11.10 Vomiting, unspecified; R10.9 Unspecified abdominal pain
CPT/HCPCS: 80053; 82805; 83690; 96361; 96374; 96375; 99284; 74176; 83605; 85025; 99283; J0780; J1885

== ENCOUNTER 2021-06-24 16:07 | Outpatient (REF) | payer OTHER, SELFPAY ==
[2021-06-24 21:00] LABS: COMMENT (LAB VIEW ONLY) 26.66 mg/dL; Microalb ug/mg Crea 64.9 ug/mg Cr
== END 2021-06-24 16:08 | disposition home or self-care (01) ==
LOC: LBN 16:07
PROVIDERS: PCP Nurse Practitioner Family; Visit Provider Nurse Practitioner Family
DX: E11.9 Type 2 diabetes mellitus without complications (principal)
CPT/HCPCS: 82043; 82570

== ENCOUNTER 2021-09-01 01:56 | Outpatient (CLI) | payer OTHER, SELFPAY ==
--- NOTE | 2021-09-01 09:15 | DI.MAMMO_ITS ---
Exam(s) MAMMO SCREENING EXAM: MAMMO SCREENING CLINICAL HISTORY: screening,Z12.39 TECHNIQUE: Mammograms were interpreted according to the usual protocol including computer analysis w [employer] CAD system, tomosynthesis and C-view imaging. COMPARISON: 2013 through 2019 FINDINGS: The breasts are composed of scattered fibroglandular densities, Breast Density category B. No suspicious masses or suspicious microcalcifications are seen. No skin thickening or abnormal axillary lymph nodes are seen. There has been no significant change from prior exams. IMPRESSION: BI-RADS Category 1, Negative mammogram Yearly screening mammography is recommended. Breast Density - Category B, scattered fibroglandular densities. A negative radiographic report should not delay biopsy if a dominant or clinically suspicious mass is present. Up to ten percent of cancers are not identified on mammography. A negative report may reinforce clinical impression. Adenosis and dense breasts may obscure an underlying neoplasm. False positive reports average 6 to 10%. Patient will receive a letter notifying them of these results.
== END 2021-09-01 02:16 ==
PROVIDERS: PCP Nurse Practitioner Family; Visit Provider Nurse Practitioner Family
DX: Z12.31 Encounter for screening mammogram for malignant neoplasm of breast (principal)
CPT/HCPCS: 77063; 77067

== ENCOUNTER 2021-09-25 08:57 | Emergency (ER) | payer OTHER, SELFPAY ==
[2021-09-25 09:05] VITALS: BP 154/78; PULSE 67; RESP 16; TEMP 36.1; O2SAT 98
--- NOTE | 2021-09-25 09:23 | W.ED.GENAD ---
Discharge Plan Disposition Patient Disposition: HOME Condition: Stable Discharge Details Clinical Impression: Neck pain Primary Care Provider: Brittney Mitchell ED Provider: Wilfredo Domingo Home Meds and New Rx's Prescriptions: New prednisone 20 mg tablet 60 mg PO DAILY 5 Days Qty: 15 RF: 0 cyclobenzaprine 5 mg tablet 5 mg PO TID PRNQty: 10 RF: 0 Continued (DME) blood-glucose meter [FreeStyle Lite Meter] Kit See Rx Instructions .ROUTE .MEDSUPPLY Qty: 1 RF: 0 (DME) lancets [FreeStyle Lancets] 28 gauge misc See Rx Instructions .ROUTE .MEDSUPPLY Qty: 180 RF: 4 glucosamine IAk-eii-rckfziewwc 1 EACH tablet 1 ea PO DAILY RF: 0 cetirizine 10 mg tablet 10 mg PO DAILY Qty: 30 RF: 3 levothyroxine 50 mcg tablet 50 mcg PO DAILY Qty: 90 RF: 4 omeprazole 40 mg capsule,delayed release(DR/EC) 40 mg PO DAILY Qty: 90 RF: 4 (DME) FreeStyle Lite Strips Strip 1 ea Miscellaneous DAILY Qty: 180 RF: 4 pravastatin 40 mg tablet 40 mg PO DAILY Qty: 90 RF: 4 metformin 500 mg tablet 500 - 1,000 mg PO BID MDD 1000mg Qty: 270 RF: 4 Discharge Instructions Instructions: Neck Pain (ED) Additional Instructions: Continue apcv-ucn-tzflxpg Tylenol and Motrin as directed. Gentle stretching as tolerated. Cool and/or warm compresses every 2 hours for 20 minutes. Add on prednisone and Flexeril. Flexeril may cause drowsiness and steroids may cause increase in your glucose levels. Please watch for new or worsening symptoms and return to the ER for any concerns. I do recommend contacting your primary care provider tomorrow to discuss your ongoing neck discomfort, need for outpatient reevaluation, potential referral to specialist and/or MRI. Stand Alone Forms: Work Release Medical Decision Making 61-year-old female, tmzzp-nlhv-pwkmmdkj, presenting for week long history of left-sided neck pain worse with movement after hanging [place] lights above her head. Reports similar episode back in 2015. Patient taking ozri-evk-gsuslip meds with little relief. Has been seen by her chiropractor, had an adjustment, pain made worse. Recommended going to get prescription for steroids and muscle relaxer. Patient appears well, nontoxic, neurologically intact. No obvious source of trauma, we discussed x-ray, patient declines. Believe MRI is likely a better study. Given her age, history of diabetes, although extremely low suspicion of ACS, we did discuss atypical chest pain and obtaining an EKG, patient declines this as well. Plan is to give 60 IM Toradol, 10 p.o. Flexeril and 60 p.o. prednisone. Sling offered but declined. Patient will contact her primary care provider tomorrow to discuss her ongoing symptoms, response to the medications prescribed today, and need for outpatient follow-up including potential MRI. She plans to follow-up with her chiropractor as well but will decline any additional manipulations and only have massage and/or ultrasound. We did discuss that steroids can increase her glucose and she will need to be more careful with her diet and glucose levels. Clinically this certainly appears to musculoskeletal in nature. Extremely low suspicion for ACS, dissection, etc. Strict discharge and return precautions provided. This documentation was generated using [employer] dictation system, please disregard any oddities of phrase or misspellings. Medical Records Medical records reviewed: Yes I reviewed the patient's medical records. HPI General Mode of arrival: ambulatory. Date/Time Provider Initiated Documentation: 09/25/21 09:11. Limitations to Documentation: no limitations. Information obtained by: patient. HPI Narrative: This is a 61-year-old female, xbwau-cerp-mkaophjg, past medical history of diabetes, sleep apnea, hyperlipidemia, hypothyroidism, GERD, presenting to the ER today complaining of left-sided neck pain, a pinched nerve. Patient states that she had a very similar episode in 2014. She tells me that last weekend she was hanging [place] lights overhead using a pole and looking upward, any looking up or typically aggravates her neck. This is actually how her episode began in 2014, after looking up at a board for an extended period of time. She reports the pain in her neck is left-sided, goes down her trapezius and into her shoulder but not down her entire arm, denies numbness, tingling, weakness. She reports the pain did start out as a stiffness and mild but subsequently has become much more painful. She was evaluated by her chiropractor this week and adjusted, making the pain much worse. The patient contacted her chiropractor again who recommended going to the urgent care for a prescription of steroids and a muscle relaxer. She states that she is been using ixqq-rhv-kvsmjzl Tylenol and Motrin with very little relief. She also states that in early June she had a fall, sustaining a concussion, plans to follow-up with neurology for this, had no neck injury at that time. She denies any chest pain, shortness of breath, back pain. Patient tells me that the pain is made worse with movement especially with movement of her shoulder greater than 90 degrees or looking to her left. Related Data Home Medications Medication Instructions Recorded Confirmed glucosamine XSu-rki-aqwdjvlsrx 1 ea PO DAILY 03/27/14 09/25/21 cetirizine 10 mg tablet 10 mg PO DAILY #30 tab-cap 03/07/19 09/25/21 blood-glucose meter #1 each 07/09/19 09/25/21 lancets 28 gauge #180 each 07/09/19 09/25/21 levothyroxine 50 mcg tablet 50 mcg PO DAILY #90 tab 02/04/21 09/25/21 omeprazole 40 mg capsule,delayed 40 mg PO DAILY #90 tab-cap 02/07/21 09/25/21 release blood sugar diagnostic #180 strip 03/31/21 09/25/21 metformin 500 mg tablet 500 - 1,000 mg PO BID #270 tab MDD 06/08/21 09/25/21 1000mg pravastatin 40 mg tablet 40 mg PO DAILY #90 tab-cap 06/08/21 09/25/21 cyclobenzaprine 5 mg PO TID PRN #10 tab 09/25/21 prednisone 60 mg PO DAILY 5 Days #15 tab 09/25/21 Previous Rx's Medication Instructions Recorded cetirizine 10 mg tablet 10 mg PO DAILY #30 tab-cap 03/07/19 blood-glucose meter #1 each 07/09/19 lancets 28 gauge #180 each 07/09/19 levothyroxine 50 mcg tablet 50 mcg PO DAILY #90 tab 02/04/21 omeprazole 40 mg capsule,delayed 40 mg PO DAILY #90 tab-cap 02/07/21 release blood sugar diagnostic #180 strip 03/31/21 metformin 500 mg tablet 500 - 1,000 mg PO BID #270 tab MDD 06/08/21 1000mg pravastatin 40 mg tablet 40 mg PO DAILY #90 tab-cap 06/08/21 cyclobenzaprine 5 mg PO TID PRN #10 tab 09/25/21 prednisone 60 mg PO DAILY 5 Days #15 tab 09/25/21 Allergies Allergy/AdvReac Type Severity Reaction Status Date / Time amoxicillin trihydrate Allergy Severe Anaphylaxsi Verified 09/25/21 09:10 [From Augmentin] s Egg Derived Allergy Severe Topical Verified 09/25/21 09:10 Irritation Fish Containing Products Allergy Severe Anaphylaxsi Verified 09/25/21 09:10 s iodine Allergy Severe Anaphylaxsi Verified 09/25/21 09:10 s Penicillins Allergy Severe Anaphylaxsi Verified 09/25/21 09:10 s potassium clavulanate Allergy Severe Anaphylaxsi Verified 09/25/21 09:10 [From Augmentin] s shellfish derived Allergy Severe Anaphylaxsi Verified 09/25/21 09:10 s Tetanus Vaccines and Toxoid Allergy Severe ARM Verified 09/25/21 09:10 [Tetanus Vaccines \E&E\ SWELLING Toxoid] fexofenadine HCl Allergy Intermediate eye Verified 09/25/21 09:10 [From Tiffani] swelling Sulfa (Sulfonamide Allergy Intermediate Swelling/Ed Verified 09/25/21 09:10 Antibiotics) zulay venom-honey bee Allergy Intermediate Swelling/Ed Verified 09/25/21 09:10 zulay codeine AdvReac Severe upset Verified 09/25/21 09:10 stomach, dizzy lisinopril AdvReac Severe COUGH Verified 09/25/21 09:10 fish Allergy Severe Anaphylaxsi Uncoded 09/25/21 09:10 s General Stated Complaint: Nk/Back Pain HERMAN: 4 Review of Systems Constitutional Constitutional: Denies fever(s) and Denies weakness ENT Ears, Nose, Mouth, and Throat: Reports neck pain Cardiovascular Cardiovascular: Denies chest pain and Denies dyspnea Respiratory Respiratory: Denies cough and Denies dyspnea Gastrointestinal Gastrointestinal: Denies abdominal pain, Denies nausea and Denies vomiting Musculoskeletal Musculoskeletal: Denies back pain, Denies arthralgias, Reports neck pain, Denies numbness, Denies stiffness and Denies tingling Integumentary/Breasts Skin/Breast: Denies rash Neurologic Neurologic: Denies numbness, Denies tingling and Denies weakness [facility] Active Problem List Neck pain (Acute) Head injury (Acute) Contusion, multiple sites (Acute) Fall (on) (from) other stairs and steps, initial encounter (Acute) Obstructive sleep apnea (Chronic) Type 2 diabetes mellitus (Chronic) Hyperlipidemia (Chronic) Hypothyroidism (Chronic) GERD (gastroesophageal reflux disease) (Chronic) Allergic rhinitis (Chronic) Medical History Essential hypertension Surgical History H/O elbow surgery (~1994) Left S/P cholecystectomy (~1989) S/P wrist surgery (~1986) Right Family History Mother , at 54 of brain aneurysm Brain aneurysm Father , at 65 of lung cancer Lung cancer Heart disease Myocardial infarction Brother , 67 from complications of strokes Hyperlipidemia Stroke Type 2 diabetes mellitus Dementia Heart disease Hypertension Maternal Grandfather , at 72 of ND Heart disease Myocardial infarction Type 2 diabetes mellitus Maternal Grandmother , at 98 Dementia Essential hypertension Stroke Paternal Grandfather Heart disease Paternal Grandmother , at 69 from emphysema Emphysema lung Social History Smoking/Tobacco Use Status: Never Second Hand Exposure: Yes Smoking risk assessment performed?: Yes Alcohol Intake: current Alcohol Intake frequency: holidays/special occasions only Alcohol type: beer, wine and hard liquor Drug use: Never Substance use type: does not use Caregiver/Support person: No Household members: spouse Housing: house Communication Needs: None Do you need help understanding health information?: Never Pets and animals: Yes Pets and animals: dog(s) Do you think of yourself as: straight/heterosexual Current gender identity: female What is your relationship status?: How often do you talk on the phone with friends or family?: three or more times per week Do you belong to any clubs or organized social groups?: no Panel score (0-1 are the most socially isolated patients): 2 What type of physical activity do you participate in: walking and weight lifting Duration: 30-45 minutes/day Frequency: daily Nazanin/Nondenominational: [employer] Special nazanin needs: No Seatbelt use: always Helmet use: Yes Helmet use: always Drive intox or ride w/intox truck driver: No Do you feel safe at home: Yes Do you feel safe in your relationship?: Yes Female Reproductive History Menstrual Menopause type: natural Exam Const General: cooperative, healthy appearing, comfortable and no acute distress Orientation: alert and awake [facility] Head: normal to inspection, normocephalic and atraumatic Eyes General: appearance normal, both eyes and all related structures Conjunctivae: conjunctivae normal Neck Neck: normal visual inspection, trachea midline, supple and tender Other: There is diffuse left-sided neck discomfort, paravertebral discomfort, no midline bony point tenderness. Discomfort goes down to the sternocleidomastoid as well as the trapezius. There is no erythema, warmth, ecchymosis, obvious spasm. Patient has increased discomfort with movement of her neck in all directions but worse with looking upward or to the ipsilateral side. Resp Effort & Inspection: normal respiratory effort and able to speak in complete sentences Auscultation: clear to auscultation bilaterally Cardio Rate: regular rate Rhythm: regular rhythm Back/Spine/Pelvis Back: No back tenderness Skin General skin exam: no rashes or lesions noted Neuro General: patient alert, patient awake, moves all extremities and no focal motor deficits Cognition: normal cognition Speech: speech normal Gait: normal gait Motor: muscle tone normal throughout and strength 5/5 throughout Sensory Exam: no sensory deficits noted Extrem General: normal to inspection, full ROM and capillary refill normal Other: Patient does report increased discomfort with movement of her left shoulder especially greater than 90 degrees. Psych Appearance: grossly normal Mental Status: mental status grossly normal Course Vital Signs Vital signs: Vital Signs Temperature 36.1 C L 09/25/21 09:05 Pulse 67 09/25/21 09:05 Respiratory Rate 16 09/25/21 09:05 Blood Pressure 154/78 H 09/25/21 09:05 Pulse Oximetry 98 09/25/21 09:05 Temperature 36.1 C L 09/25/21 09:05 Temperature Source Skin 09/25/21 09:05 Pulse 67 09/25/21 09:05 Respiratory Rate 16 09/25/21 09:05 Respiratory Effort Non-Labored 09/25/21 09:05 Blood Pressure 154/78 H 09/25/21 09:05 Blood Pressure Position Sitting 09/25/21 09:05 Pulse Oximetry 98 09/25/21 09:05 Oxygen Delivery Method Room Air 09/25/21 09:05 Oxygen Flow Rate 0 09/25/21 09:05 Pain Level 9 09/25/21 09:05
[2021-09-25] MEDS: Cyclobenzaprine 10 MG TAB PO (09:51)
[2021-09-25] MEDS: Ketorolac 60 MG/2 ML VIAL IM (09:51)
[2021-09-25] MEDS: predniSONE 20 MG TAB 60 MG PO (09:51)
== END 2021-09-25 10:30 | disposition home or self-care (01) ==
PROVIDERS: Emergency Provider Physician Assistant; PCP Nurse Practitioner Family
DX: M54.2 Cervicalgia (principal); X50.1XXA Overexertion from prolonged static or awkward postures, initial encounter
CPT/HCPCS: 96372; 99284; 99283; J1885; J7512

== ENCOUNTER 2022-03-03 13:09 | Outpatient (CLI) | payer SELFPAY | END 2022-03-03 13:10 | disposition home or self-care (01) | LOC: LBO 13:11 | PROVIDERS: PCP Nurse Practitioner Family; Visit Provider Nurse Practitioner ==

== ENCOUNTER → 2022-05-20 10:30 | Outpatient (CLI) | payer OTHER, SELFPAY ==
--- NOTE | 2022-05-20 10:45 | DI.RAD_ITS ---
Exam(s) XR LUMBAR SPINE COMPLETE EXAM: XR LUMBAR SPINE COMPLETE CLINICAL HISTORY: vertebral alignment - evaluate for disc herniation. TECHNIQUE: 2D digital imaging was performed of the lumbar spine. Five images were obtained. AP, la teral, right oblique, left oblique and L5-S1 spot views were obtained. COMPARISON: No exams were available for comparison FINDINGS: BONES: No fracture or destructive lesion. There are small endplate osteophytes throughout the lumbar spine. No facet hypertrophy identified. DISKS: Intervertebral disc spaces are maintained. ALIGNMENT: Lumbar spinal alignment is within normal limits. No spondylolysis or spondylolisthesis. SOFT TISSUE: Normal. IMPRESSION: 1. Mild degenerative changes are seen in the lumbar spine. 2. No acute abnormality. DATA REPOSITORY: RADIATION DOSE DELIVERED:
--- NOTE | 2022-05-20 11:30 | DI.VRAD_ITS ---
PROCEDURE INFORMATION: Exam: XR Lumbosacral Spine Exam date and time: 05/20/2022 11:04 AM Age: 62 years old Clinical indication: Low back pain TECHNIQUE: Imaging protocol: Radiologic exam of the lumbosacral spine. Views: 4 or 5 views. COMPARISON: CT ABDOMEN PELVIS WO 03/18/2021 3:50 AM FINDINGS: Bones/joints: There is no evidence of acute fracture.There is no evidence of malalignment or dislocation. Intervertebral disc spaces are maintained. Soft tissues: Unremarkable. IMPRESSION: 1. There is no evidence of acute fracture.There is no evidence of malalignment or dislocation. 2. Intervertebral disc spaces are maintained. Dictated and Authenticated by: Audra Younger MD. Ordering:RICH Arenas MD
== END ==
PROVIDERS: PCP Nurse Practitioner Family; Visit Provider Nurse Practitioner Family
DX: M54.16 Radiculopathy, lumbar region (principal); M25.78 Osteophyte, vertebrae; M47.26 Other spondylosis with radiculopathy, lumbar region
CPT/HCPCS: 72110

== ENCOUNTER 2022-08-24 15:10 | Outpatient (REF) | payer OTHER, SELFPAY ==
--- NOTE | 2022-08-24 14:55 | SKI_PTH ---
PATIENT: Jacqueline Cyr LOC: [facility] U#:[id number] AGE/SX: 62/F ROOM: RE08/24/[address]: Pat Green MD : 1960 BED: DIS: 08/24/2022 SPEC #: [id number] RECD: 08/24/22 17:44 STATUS: GILDARDO REQ #: [id number] ANNI: 08/24/22 14:[address]: Pat Green DEPT: Surgical Specimen RECD BY: Lara Bonds ENTERED: 08/24/22 17:47 SP TYPE: JARRETT HUBBARD DR: ALFONSO Devi Tissues: 1 - SKIN BIOPSY(SHAVE/PUNCH) Procedures: GROSS AND MICRO LEVEL 4 Comments: [id number]
== END 2022-08-24 15:11 | disposition home or self-care (01) ==
LOC: LBN 15:10
PROVIDERS: PCP Nurse Practitioner Family; Visit Provider Obstetrics & Gynecology
DX: L08.89 Other specified local infections of the skin and subcutaneous tissue (principal)
CPT/HCPCS: 88305

== ENCOUNTER → 2022-09-06 01:38 | Outpatient (CLI) | payer OTHER, SELFPAY ==
--- NOTE | 2022-09-06 07:45 | DI.MAMMO_ITS ---
Exam(s) MAMMO SCREENING EXAM: MAMMO SCREENING CLINICAL HISTORY: screening,Z12.39 TECHNIQUE: Bilateral full field digital CC and MLO mammographic images were obtained with 3D tomosyn thesis and utilizing computer aided detection (CAD). COMPARISON: Available for comparison. FINDINGS: Masses/Architectural Distortion: None seen. Microcalcifications: No suspicious pleomorphic-type are seen. Skin Thickening/Nipple Retraction: None. IMPRESSION: 1. No significant interval change with no specific features of malignancy noted. 2. Unless there is more urgent need, screening mammography is recommended, as per [employer] guidelines. BI-RADS Category 1 - Negative Breast Density - Category B - Scattered areas of fibroglandular density Breast density category C or D implies that the patient has dense breast tissue. Dense breast tissue is very common and is not abnormal but dense breast tissue can make it harder to find cancer on a ma mmogram. Also, dense breast tissue may increase their breast cancer risk. This information about the result of the mammogram report was provided to the patient to raise their awareness. Use this report when you speak with the patient about their risks for breast cancer, which includes their family hist ory. At that time, you may recommend for more screening tests (Ultrasound or MRI) as they might be us eful based on their risk. A negative radiographic report should not delay biopsy if a dominant or clinically suspicious mass is present. Up to ten percent of cancers are not identified on mammography. A negative report may reinforce clinical impression. Adenosis and dense breasts may obscure an underlying neoplasm. False positive reports average 6 to 10%. Patient will receive a letter notifying them of these results.
== END ==
PROVIDERS: PCP Nurse Practitioner Family; Visit Provider Nurse Practitioner Family
DX: Z12.31 Encounter for screening mammogram for malignant neoplasm of breast (principal)
CPT/HCPCS: 77063; 77067

== ENCOUNTER 2022-10-17 02:06 | Outpatient (CLI) | payer OTHER, SELFPAY ==
[2022-10-17 07:55] LABS: Anion Gap 6.7 mmol/L (3-11); BUN 13 mg/dL (7-18); CO2 30.3 mmol/L (21.0-32.0); Calcium 8.7 mg/dL (8.5-10.1); Chloride 103 mmol/L (98-107); Estimated GFR 64.49 (mL/min/1.73m2); FREE T4 1.14 ng/dL (0.76-1.46); Glucose 142 mg/dL (74-106); Potassium 3.9 mmol/L (3.5-5.1); Sodium 140 mmol/L (136-145); TSH 2.54 uIU/mL (0.36-3.74)
[2022-10-17 08:12] LABS: Calculated LDL 114 mg/dL (<100); Cholesterol 196 mg/dL (<200); HDL Cholesterol 40 mg/dL (40-60); Triglyceride 214 mg/dL (<150)
== END 2022-10-17 02:07 | disposition home or self-care (01) ==
LOC: LBO 02:07
PROVIDERS: PCP Nurse Practitioner Family; Visit Provider Nurse Practitioner Family
DX: E03.9 Hypothyroidism, unspecified (principal); E11.9 Type 2 diabetes mellitus without complications
CPT/HCPCS: 36415; 80048; 80061; 84439; 84443

== ENCOUNTER 2023-08-15 04:09 | Outpatient (CLI) | payer OTHER, SELFPAY ==
[2023-08-15 09:36] LABS: Anion Gap 9.2 mmol/L (3-11); BUN 10 mg/dL (7-18); CO2 26.8 mmol/L (21.0-32.0); CREATININE 0.9 mg/dL (0.55-1.02); Calcium 8.6 mg/dL (8.5-10.1); Calculated LDL 112 mg/dL (<100); Chloride 103 mmol/L (98-107); Cholesterol 190 mg/dL (<200); Estimated GFR 72.73 (mL/min/1.73m2); Glucose 122 mg/dL (74-106); HDL Cholesterol 37 mg/dL (40-60); Potassium 3.7 mmol/L (3.5-5.1); Sodium 139 mmol/L (136-145); TSH (W/Ref FT4) 2.14 uIU/mL (0.36-3.74); Triglyceride 208 mg/dL (<150); Vitamin B12 429 pg/mL (193-986)
[2023-08-18 16:56] LABS: Methylmalonic Acid 0.19 nmol/mL (<=0.40)
== END 2023-08-15 04:10 | disposition home or self-care (01) ==
PROVIDERS: PCP Nurse Practitioner Family; Visit Provider Nurse Practitioner Family
DX: F07.81 Postconcussional syndrome (principal); Z00.00 Encounter for general adult medical examination without abnormal findings; G44.309 Post-traumatic headache, unspecified, not intractable
CPT/HCPCS: 36415; 80048; 80061; 80186; 82607; 84443

== ENCOUNTER → 2023-09-14 00:30 | Outpatient (CLI) | payer OTHER, SELFPAY ==
--- NOTE | 2023-09-14 15:50 | DI.MAMMO_ITS ---
Exam(s) MAMMO SCREENING EXAM: MAMMO SCREENING CLINICAL HISTORY: screening,z12.39. TECHNIQUE: Bilateral full field digital CC and MLO mammographic images were obtained with 3D tomosyn thesis and utilizing computer aided detection (CAD). COMPARISON: Prior mammograms were reviewed. FINDINGS: There has been no significant change in the appearance and distribution of the fibroglandular tissue. Small asymmetric density inferiorly in the right breast on the 3D MLO view is unchanged from prior ma mmograms. There are no new spiculated masses nor malignant appearing microcalcification groups. There is no significant architectural distortion nor skin thickening-retraction. IMPRESSION: No radiographic evidence of malignancy. BI-RADS Category 1 - Negative Breast Density - Category B - Scattered areas of fibroglandular density Breast density Category C or D implies that the patient has dense breast tissue. Dense breast tissue can make it harder to find cancer on a mammogram. Dense breast tissue is also associated with an incr eased risk of breast cancer. This information about the result of the mammogram report was provided to the patient to raise their awareness. Use this report when you speak with the patient about their risks for breast cancer, which includes their family history. At that time, you may recommend additional screening tests (Ultrasoun d or MRI) as these tests may add significant information. A negative radiographic report should not delay biopsy if a dominant or clinically suspicious mass is present. Up to ten percent of cancers are not identified on mammography. A negative report may reinforce clinical impression. Adenosis and dense breasts may obscure an underlying neoplasm. False positive reports average 6 to 10%. Patient will receive a letter notifying them of these results.
== END ==
PROVIDERS: PCP Nurse Practitioner Family; Visit Provider Nurse Practitioner Family
DX: Z12.31 Encounter for screening mammogram for malignant neoplasm of breast (principal)
CPT/HCPCS: 77063; 77067

== ENCOUNTER 2024-08-12 09:36 | Emergency (ER) | payer OTHER, SELFPAY ==
[2024-08-12] VITALS (25 sets, daily range): BP systolic 137–157; BP diastolic 57–69; PULSE 67–76; RESP 10–44; TEMP 36.6; O2SAT 93–99
--- NOTE | 2024-08-12 09:30 | RT.EKG_ITS ---
APPROVED REPORT Exam: Resting ECG Reason for Exam: Chest pressure Patient Location: E HR:67 bpm ECG Measurements Heart Rate 67 AXIS DE 160 P 37 QRSd 78 QRS -14 QT 379 T 20 QTc 400 Conclusion Sinus rhythm...normal P axis, V-rate 60- 99 Low voltage, precordial leads...precordial leads <1.0mV Consider anterior infarct...Q >30mS in V2-V5 Narrow complex normal sinus rhythm at a rate of 67. Left axis deviation no signs of LVH. Intervals within normal limits. Low voltage. No acute ST segment abnormalities. Poor R wave progression. No prior for comparison. No acute injury pattern.
--- NOTE | 2024-08-12 09:38 | ED.GENADUL_ITS ---
Discharge Plan Disposition Patient Disposition: Home Discharge Details Clinical Impression: Chest pain, unspecified Primary Care Provider: Brittney Mitchell ED Provider: Washington Azul Home Meds and New Rx's Prescriptions: Continued glucosamine YRn-slj-dhlcqvewyo 1 EACH tablet 1 ea PO DAILY cetirizine 10 mg tablet 10 mg PO DAILY Qty: 30 3RF (DME) blood-glucose meter [FreeStyle Lite Meter] Kit See Rx Instructions .ROUTE .MEDSUPPLY Qty: 1 0RF Rx Instructions: Check blood sugar twice a day (DME) blood sugar diagnostic Strip 1 ea Miscellaneous DAILY Qty: 200 4RF Rx Instructions: Check blood sugar twice a day (DME) lancets 28 gauge misc See Rx Instructions .ROUTE .MEDSUPPLY Qty: 200 3RF Rx Instructions: Check blood sugar twice a day omeprazole 40 mg capsule,delayed release(DR/EC) 40 mg PO DAILY Qty: 90 3RF Rx Instructions: 1 CAP DAILY tirzepatide 15 mg/0.5 mL pen injector 15 mg subcut QWEEK Qty: 6 3RF glipizide 10 mg tablet extended release 24hr 10 mg PO DAILY Qty: 90 3RF pravastatin 40 mg tablet 40 mg PO DAILY Qty: 90 3RF losartan 50 mg tablet 50 mg PO DAILY Qty: 90 3RF levothyroxine 50 mcg tablet 50 mcg PO DAILY Qty: 90 3RF Discharge Instructions Instructions: Chest Pain, Adult ED Additional Instructions: You were seen in the emergency department for your chest pain. Your blood work shows no sign of any acute damage to your heart. As we discussed, please follow-up with your primary care provider as you may benefit from a stress test. Please return to the emergency department if you develop nausea vomiting fevers or chills. Discharge Data Discharge Date/Time-TO BE ENTERED AT DEPARTURE: 08/12/24 12:52 HPI General Date/Time Provider Initiated Documentation: 08/12/24 09:38 . HPI Narrative: [facility] This is an overall very well-appearing normothermic and not tachycardic 64-year-old female with chest pressure and risk factors concerning for the possibility of ACS for which she will receive 324 mg of aspirin prior to troponin testing in the setting of her nonischemic ECG. No tearing quality to suggest aortic dissection. Patient does have pain that worsens after she lays down but it is not immediately worse when laying down and based on her age and ECG my suspicion for pericarditis is low. Furthermore bedside echocardiogram lacks no significant pericardial effusion. No pain or proportion to suggest necrotizing soft tissue infection. No shortness of breath so my suspicion for PE is low as I did not send a D-dimer. No cough to suggest pneumonia. No recent emesis to suggest increased risk for esophageal rupture. Soft nontender abdomen some not concern for referred pain. Given elevated BMI I did send a lipase to assess for pancreatitis. No right upper quadrant tenderness to suggest acute cholecystitis. Not a dialysis patient so my suspicion for tamponade is low. No rash to chest to suggest zoster. Equal breath sounds and no trauma so doubt pneumothorax. Will reassess following labs and chest x-ray. 11 AM CBC lacks anemia thrombocytopenia and leukocytosis. 11:27 AM Comprehensive metabolic panel with no CK. No LFT abnormalities. Initial troponin 4 ng/L. Normal reassuring lipase. 12:34 PM Patient's repeat troponin changed from 4 ng/L to 5 ng/L. I advised PCP follow- up. I discussed that she should return to the ED for chest pain changed if she developed diaphoresis or if her pain radiated into her jaw or arms. She understood her return indications and was discharged with an empiric trial of expectant outpatient management. Chronic conditions affecting the care of the patient: Elevated BMI diabetes hypertension hyperlipidemia. History obtained from an outside historian: N/A External record review: [facility] EMR Diagnostic interpretations performed by me: Per my independent interpretation chest x-ray shows: No acute cardiopulmonary process Per my independent interpretation EKG shows: Narrow complex normal sinus rhythm at a rate of 67. Left axis deviation no signs of LVH. Intervals within normal limits. Low voltage. No acute ST segment abnormalities. Poor R wave progression. No prior for comparison. No acute injury pattern. ]Medications: Aspirin Social determinants of health affecting disposition: N/A Management discussed with: N/A Treatment/interventions considered: N/A Response to therapies provided: N/A HPI This is a 64-year-old female with history of hypertension hyperlipidemia and zzk-gvhzzxf-etnkmxquj diabetes arrived to the emergency department via private vehicle in the setting of chest pressure which began 4 days ago. She endorses a retrosternal chest pressure that began at rest. She denies any radiation. She says that 3 nights ago she fell asleep and woke back up in middle the night with chest pressure. She feels like something is sitting on her chest. 2 days ago she was able to walk for 1 and half hours around [facility] and this did not exacerbate her symptoms. She did feel more fatigued however the end of the day. She is due to see her primary care provider in 2 weeks. She says that when she lays down she does not immediately feel that her pressure worsens. She does say however that her pressure gradually worsens after she has been laying down for some time. Last night woke up from sleep. She does not feel short of breath. She did have a viral URI approximately 2 months ago. She rarely drinks ethanol and denies routine tobacco and illicits. She denies alleviators. Family history significant for coronary artery disease in her father before he was 65 years old. Exam General: Well-appearing in no acute distress speaking in complete sentences. Head: Normocephalic, atraumatic. Eye: Extraocular eye movements intact. No conjunctival injection. No scleral icterus. Ear, nose, mouth, throat: Grossly normal inspection. Normal voice, handling secretions normally. Neck: Trachea midline. Cardiovascular: Well-perfused distal extremities. Regular rate and rhythm Respiratory: Nonlabored respiration. Clear lungs bilaterally Gastrointestinal: Nondistended abdomen. Soft nontender. Musculoskeletal: No edema. Moving all 4 extremities spontaneously. Skin: Normal for age and race, grossly normal temperature and turgor. No acute rash. Neurologic: Alert and appropriate, no apparent acute deficits. GCS 15. Psychiatric: Mood and manner are appropriate. Grooming and personal hygiene are appropriate. Related Data Home Medications ?Medication ?Instructions ?Recorded ?Confirmed glucosamine HCl 500 mg-msm 83 1 ea PO DAILY 03/27/14 08/12/24 mg-chondroitin 400 mg tablet cetirizine 10 mg tablet 10 mg PO DAILY #30 tab-caps 03/07/19 08/12/24 blood sugar diagnostic #200 ea 03/16/23 08/12/24 blood-glucose meter (FreeStyle #1 ea 03/16/23 08/12/24 Lite Meter kit) lancets 28 gauge #200 ea 03/16/23 08/12/24 omeprazole 40 mg capsule,delayed 40 mg PO DAILY #90 caps 04/07/24 08/12/24 release glipizide 10 mg tablet, extended 10 mg PO DAILY #90 tabs 05/02/24 08/12/24 release 24 hr tirzepatide 15 mg/0.5 mL 15 mg (0.5 mL) subcut QWEEK #6 mL 05/02/24 08/12/24 subcutaneous pen injector pravastatin 40 mg tablet 40 mg PO DAILY #90 tabs 05/15/24 08/12/24 losartan 50 mg tablet 50 mg PO DAILY #90 tabs 07/17/24 08/12/24 levothyroxine 50 mcg tablet 50 mcg PO DAILY #90 tabs 08/08/24 08/12/24 Previous Rx's ?Medication ?Instructions ?Recorded cetirizine 10 mg tablet 10 mg PO DAILY #30 tab-caps 03/07/19 blood sugar diagnostic #200 ea 03/16/23 blood-glucose meter (FreeStyle #1 ea 03/16/23 Lite Meter kit) lancets 28 gauge #200 ea 03/16/23 omeprazole 40 mg capsule,delayed 40 mg PO DAILY #90 caps 04/07/24 release glipizide 10 mg tablet, extended 10 mg PO DAILY #90 tabs 05/02/24 release 24 hr tirzepatide 15 mg/0.5 mL 15 mg (0.5 mL) subcut QWEEK #6 mL 05/02/24 subcutaneous pen injector pravastatin 40 mg tablet 40 mg PO DAILY #90 tabs 05/15/24 losartan 50 mg tablet 50 mg PO DAILY #90 tabs 07/17/24 levothyroxine 50 mcg tablet 50 mcg PO DAILY #90 tabs 08/08/24 Allergies Allergy/AdvReac Type Severity Reaction Status Date / Time amoxicillin trihydrate (From Allergy Severe Anaphylaxsi Verified 08/12/24 09:45 Augmentin) s Egg Derived Allergy Severe Topical Verified 08/12/24 09:45 Irritation Fish Containing Products Allergy Severe Anaphylaxsi Verified 08/12/24 09:45 s iodine Allergy Severe Anaphylaxsi Verified 08/12/24 09:45 s Penicillins Allergy Severe Anaphylaxsi Verified 08/12/24 09:45 s potassium clavulanate (From Allergy Severe Anaphylaxsi Verified 08/12/24 09:45 Augmentin) s shellfish derived Allergy Severe Anaphylaxsi Verified 08/12/24 09:45 s Tetanus Vaccines and Toxoid Allergy Severe ARM Verified 08/12/24 09:45 (Tetanus Vaccines \E&E\ SWELLING Toxoid) fexofenadine HCl (From Allergy Intermediate eye Verified 08/12/24 09:45 Tiffani) swelling Sulfa (Sulfonamide Allergy Intermediate Swelling/Ed Verified 08/12/24 09:45 Antibiotics) zulay venom-honey bee Allergy Intermediate Swelling/Ed Verified 08/12/24 09:45 zulay sulfamethoxazole (From Allergy Swelling/Ed Verified 08/12/24 09:45 Bactrim) zulay trimethoprim (From Bactrim) Allergy Swelling/Ed Verified 08/12/24 09:45 zulay codeine AdvReac Severe upset Verified 08/12/24 09:45 stomach, dizzy lisinopril AdvReac Severe COUGH Verified 08/12/24 09:45 empagliflozin (From AdvReac Mild Yeast Verified 08/12/24 09:45 Jardiance) infections fish Allergy Severe Anaphylaxsi Uncoded 08/12/24 09:45 s General HERMAN: 4 Medical Decision Making Quality:SDOH Health Related Social Needs: No Data to Display PFSH All Active Problems (Updated 08/12/24 @ 12:35 by Washington Azul MD) Chest pain, unspecified (Acute) Obstructive sleep apnea (Chronic) PSG 2014, CPAP Type 2 diabetes mellitus (Chronic) Essential hypertension (Chronic) Hyperlipidemia (Chronic) Hypothyroidism (Chronic) Post concussion syndrome (Chronic) Post-concussion headache (Chronic) Short-term memory loss (Chronic) GERD (gastroesophageal reflux disease) (Chronic) Allergic rhinitis (Chronic) Sigmoid diverticulosis (Chronic) 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) Medical History COVID-19 (~03/03/22) Surgical History S/P wrist surgery (~1986) Right H/O elbow surgery (~1994) Left S/P cholecystectomy (~1989) Family History Mother , at 54 of brain aneurysm Brain aneurysm Father , at 65 of lung cancer Lung cancer Heart disease Myocardial infarction Brother , 67 from complications of strokes Hyperlipidemia Stroke Type 2 diabetes mellitus Dementia Heart disease Hypertension Maternal Grandfather , at 72 of MS Heart disease Myocardial infarction Type 2 diabetes mellitus Maternal Grandmother , at 98 Dementia Essential hypertension Stroke Paternal Grandfather Heart disease Paternal Grandmother , at 69 from emphysema Emphysema lung Social History Smoking/Tobacco Use Status: Never Second Hand Exposure: Yes Smoking risk assessment performed?: Yes Alcohol Intake: current Alcohol Intake frequency: holidays/special occasions only Alcohol type: beer and hard liquor Drug use: Never Substance use type: does not use Caregiver/Support person: No Household members: spouse Housing: house Communication Needs: None Education Level: college Do you need help understanding health information?: Never Pets and animals: Yes Pets and animals: dog(s) Sexually active: No Do you think of yourself as: straight/heterosexual Current gender identity: female What is your relationship status?: How often do you talk on the phone with friends or family?: three or more times per week How often do you get together with friends or relatives?: once per week Do you belong to any clubs or organized social groups?: yes Panel score (0-1 are the most socially isolated patients): 3 What type of physical activity do you participate in: walking and weight lifting Duration: 15-30 minutes/day Frequency: 1-2 times per week Nazanin/Tenriism: [employer] Special nazanin needs: No Seatbelt use: always Helmet use: Yes Helmet use: always Drive intox or ride w/intox steam train driver: No Do you feel safe at home: Yes Do you feel safe in your relationship?: Yes Female Reproductive History Menstrual control method: none Menopause type: natural History History 0 Para Hx # Term Pregnancies Multiple births Hx # Pregnancies Ectopic pregnancies AB induced Hx Number of Living Children AB spontaneous POCUS Exam (ED) Limited Cardiac Exam DATE OF EXAM: 08/12/24 TIME OF EXAM: 10:18 PROVIDER THAT PERFORMED THE STUDY: Washington Azul IS THIS A REPEAT EXAM DURING THIS ENCOUNTER: no REASON FOR EXAM: Chest pain VISUALIZED STRUCTURES: Four Chambers, Left ventricle and LVOT VIEW OBTAINED: Parasternal long-axis, Subxiphoid and Other (Could not tolerate apical four-chamber) PERTINENT FINDINGS/IMPRESSION: No pericardial effusion and No RV dilation DIFFERENTIAL DIAGNOSES: Aortic outflow track less than 4 cm, good squeeze, no significant pericardial effusion. Exam complete
--- NOTE | 2024-08-12 10:25 | DI.RAD_ITS ---
Exam(s) XR PORTABLE CHEST AP EXAM: XR PORTABLE CHEST AP CLINICAL HISTORY: Chest pain TECHNIQUE: 2D digital imaging was performed of the chest. One image was obtained. An AP view was ob tained. COMPARISON: CR XR CHEST 2V PA LATERAL from 08/20/2018 FINDINGS: MEDIASTINUM: Normal. HEART: Normal. PULMONARY VASCULATURE: Normal. LUNGS: Clear. PLEURAL SPACE: No pleural effusion or pneumothorax. BONE:Within normal limits for the patient's age. OTHER FINDINGS:Normal. IMPRESSION: No acute pulmonary findings. DATA REPOSITORY: RADIATION DOSE DELIVERED:
[2024-08-12] MEDS: Aspirin 81 MG CHEW 324 MG CH (10:26)
[2024-08-12 10:50] LABS: Abs Immature Grans 0.02 10^3/uL (0.0-0.06); Absolute Basophil Count 0.07 10^3/uL (0.0-0.2); Absolute Lymphocyte Count 1.97 10^3/uL (1.2-3.4); Absolute Monocyte Count 0.51 10^3/uL (0.1-0.8); Absolute Neutrophil Count 3.58 10^3/uL (1.2-6.7); Basophils % 1.1 %; Eosinophils % 4.7 %; HCT 40.4 % (36.0-46.0); HGB 13.8 g/dL (11.2-15.7); Immature Grans % 0.3 %; Lymphocytes % 30.5 %; MCH 28.5 pg (27.0-33.0); MCHC 34.2 % (32.0-36.0); MCV 84 fL (80-95); MPV 11.1 fL (8.0-11.0); Monocytes % 7.9 %; Neutrophils % 55.5 %; Platelet Count 156 10^3/uL (130-400); RBC 4.84 10^6/uL (3.93-5.22); RDW 13.1 % (11.7-14.6); RDW-SD 39.7 fL; WBC 6.45 10^3/uL (4.4-10.8)
[2024-08-12 11:04] LABS: Lipase 30 U/L (16-77)
[2024-08-12 11:09] LABS: ALT 37 U/L (14-59); AST 25 U/L (15-37); Albumin 3.7 g/dL (3.4-5.0); Alkaline Phosphatase 69 U/L (46-116); Anion Gap 8.8 mmol/L (3-11); BUN 13 mg/dL (7-18); Bilirubin, Total 0.32 mg/dL (0.2-1.0); CO2 28.2 mmol/L (21.0-32.0); CREATININE 0.9 mg/dL (0.55-1.02); Chloride 106 mmol/L (98-107); Estimated GFR 72.28 (mL/min/1.73m2); Glucose 106 mg/dL (74-106); Potassium 3.8 mmol/L (3.5-5.1); Sodium 143 mmol/L (136-145); Total Protein 7.1 g/dL (6.4-8.2)
[2024-08-12 11:11] LABS: Troponin I 4 ng/L (<or=51)
[2024-08-12 11:16] LABS: Calcium 9.3 mg/dL (8.5-10.1)
[2024-08-12 12:27] LABS: Troponin I 5 ng/L (<or=51)
== END 2024-08-12 12:52 | disposition home or self-care (01) ==
PROVIDERS: Emergency Provider Emergency Medicine; PCP Nurse Practitioner Family
DX: R07.89 Other chest pain (principal); E11.9 Type 2 diabetes mellitus without complications; I10 Essential (primary) hypertension; E78.5 Hyperlipidemia, unspecified; Z79.84 Long term (current) use of oral hypoglycemic drugs
CPT/HCPCS: 36415; 80053; 83690; 93005; 93308; 99285; 71045; 84484; 85025; 93010; 99284

== ENCOUNTER 2024-09-01 00:54 | Outpatient (CLI) | payer OTHER, SELFPAY ==
--- NOTE | 2024-09-01 07:34 | DI.NM_ITS ---
APPROVED REPORT Exam: Pharmacologic Patient Location: Out-Patient Room/Bed: Stress Nurse: Sandy Ang RN Ordering Provider:DEJA ALBERTS, Contact Number: [phone] BMI: 38.96 Baseline Rhythm: Sinus Rhythm Indications: chest pain Medical History Medical History: hypothyroid, DM2, HTN, HLD, RIMMA, GERD Cardiac Medications: pravastatin, losartan Allergies: amoxicillin, penicillins, iodine, sulfas, codeine, lisinopril, jardiance, fish, bactrim, a llegra, tetanus, shellfish, augmentin Cardiac Risk Factors: family hx, diabetes, HTN, HLD, obesity Previous Cardiac Procedures: none Pretest Chest Pain Characteristics: 1 out of 10 pressure Exercise History: Indeterminate Physical Disabilities: none Lung Sounds: Clear to auscultation Heart Sounds: Regular Stress Test Details Test: Exercise stress converted to pharmacologic stress due to failure to obtain a diagnostic stress test. Reason for pharmacologic stress test: changed from exercise stress test due to inability to reach t arget heart rate. Nuclear Acquisition: Rest Tc-99m/Stress Tc-99m 1 day Rest Isotope: Tc-99m Sestamibi. Dose: 10.0 Date: 09/01/2024 Injection Time: 0915 Stress Isotope: Tc-99m Sestamibi. Dose: 30.0 Date: 09/01/2024 Injection Time: 1134 HR Resting HR Supine: 60 bpm Max Heart Rate (APMHR): 158.241212 bpm Resting HR Standin bpm Target HR (85% APMHR): 134.683940 bpm Max HR Achieved: 115 bpm % of APMHR: 72.78 Recovery HR: 75 bpm HR response to stress: Normal HR response to stress BP Resting BP Supine: 142/72 mmHg Resting BP Standin/72 mmHg Max BP: 180/40 mmHg Recovery BP: 160/60 mmHg BP response to stress: Normal blood pressure response to stress. ECG Resting ECG: Sinus Rhythm Ectopy: none Stress ECG: Sinus Tachycardia ST Change: No significant ST segment changes noted Arrhythmia: occasional PACs, rare PVC Recovery ECG: Sinus Rhythm Recovery ST Change: No significant ST segment changes noted Recovery Arrhythmia: rare PAC, rare PVC Clinical Reason for Termination: Fatigue Stress Symptoms: General Fatigue Exercise duration: 07 min59 sec Highest Stage Reached: Stage 2: 2.5 mph at 12% grade. Exercise capacity: 7.05 METs Angina Score: Non-Limiting Mccollum Treadmill Score: 3.4 Rate Pressure Product: [id number] Stress ECG Conclusion 1. Resting electrocardiogram showed poor R wave progression, nondiagnostic ST-T abnormalities 2. Patient underwent testing using low-level exercise and pharmacologic stress with regadenoson 3. Peak heart rate achieved was 76% of maximal predicted for age 4. The electrocardiographic portion of the test was nondiagnostic due to inadequate heart rate 5. See MPI report Mccollum Treadmill Score is 3.4 which is Moderate risk. Stress Test Summary STAGE Time (mins) Speed (mph) Grade (%) HR BP SpO2 SYMPTOMS METS Supine 60 142/72 98 Standing 75 150/72 1 3 1.7 10 96 146/60 98 mod. SOB, general fatigue 4.5 2 6 2.5 12 112 7 1 min post Lexiscan injection 110 180/40 98 mod. SOB, general fatigue 3 min post Lexiscan injection 82 160/40 99 6 min post Lexiscan injection 75 160/60 98 symptoms resolved MPI Conclusion Myocardial perfusion is normal. There is no ischemia or evidence of prior infarction Ejection fraction is 69% with normal wall motion Radiologist Interpretation Radiologist Interpretation by: Cristian Robison MD Interpretation Date/Time: 09/01/2024 16:06:37
[2024-09-01] MEDS: Regadenoson 0.4 MG/5 ML SYR IVP (11:34)
[2024-09-01 13:20] LABS: Hemoglobin A1C 6.4 % (<5.7)
[2024-09-01 14:27] LABS: TSH (W/Ref FT4) 1.51 uIU/mL (0.36-3.74)
== END 2024-09-01 01:14 ==
LOC: DI 00:55
PROVIDERS: PCP Nurse Practitioner Family; Visit Provider Nurse Practitioner Family
DX: R07.9 Chest pain, unspecified (principal); E03.9 Hypothyroidism, unspecified; E11.9 Type 2 diabetes mellitus without complications
CPT/HCPCS: 36415; 78452; 83036; 84443; 93017; J2785

== ENCOUNTER 2024-09-15 01:01 | Outpatient (CLI) | payer OTHER, SELFPAY ==
--- NOTE | 2024-09-15 15:02 | DI.MAMMO_ITS ---
Exam(s) MAMMO SCREENING EXAM: MAMMO SCREENING CLINICAL HISTORY: screening, Z12.39. TECHNIQUE: Bilateral full field digital CC and MLO mammographic images were obtained with 3D tomosyn thesis and utilizing computer aided detection (CAD). COMPARISON: Prior mammograms were reviewed. FINDINGS: There has been no significant change in the appearance and distribution of the fibroglandular tissue. There are no new spiculated masses nor malignant appearing microcalcification groups. Small benign-appearing group of punctate microcalcifications the left breast remains unchanged Posteriorly in the right breast there is 1 additional benign-appearing nodular density which was not evident prior mammograms and has appearance of benign intramammary node against the chest wall. There is no significant architectural distortion nor skin thickening-retraction. IMPRESSION: Benign findings. No radiographic evidence of malignancy. BI-RADS Category 2 - Benign Findings Breast Density - Category B - Scattered areas of fibroglandular density Breast density Category C or D implies that the patient has dense breast tissue. Dense breast tissue can make it harder to find cancer on a mammogram. Dense breast tissue is also associated with an incr eased risk of breast cancer. This information about the result of the mammogram report was provided to the patient to raise their awareness. Use this report when you speak with the patient about their risks for breast cancer, which includes their family history. At that time, you may recommend additional screening tests (Ultrasoun d or MRI) as these tests may add significant information. A negative radiographic report should not delay biopsy if a dominant or clinically suspicious mass is present. Up to ten percent of cancers are not identified on mammography. A negative report may reinforce clinical impression. Adenosis and dense breasts may obscure an underlying neoplasm. False positive reports average 6 to 10%. Patient will receive a letter notifying them of these results.
== END 2024-09-15 01:21 ==
LOC: DI 01:01
PROVIDERS: PCP Nurse Practitioner Family; Visit Provider Nurse Practitioner Family
DX: Z12.31 Encounter for screening mammogram for malignant neoplasm of breast (principal); D24.1 Benign neoplasm of right breast; R92.323 Mammographic fibroglandular density, bilateral breasts
CPT/HCPCS: 77063; 77067

== ENCOUNTER 2025-07-08 18:37 | Emergency (ER) | payer OTHER, SELFPAY ==
[2025-07-08 18:41] VITALS: BP 154/76; PULSE 67; RESP 12; TEMP 36.4; O2SAT 97
--- NOTE | 2025-07-08 18:45 | DI.CT_ITS ---
Exam(s) CT BRAIN CTA EXAM: CT BRAIN CTA CLINICAL HISTORY: Sudden onset headache. TECHNIQUE: Imaging Protocol: Both noninfused and contrast infused CT scans of the brain were performed. IV Contrast Dose =70 cc Axial computed tomography images with coronal and sagittal reformatted images were created and reviewed COMPARISON: No exams were available for comparison FINDINGS: There are no skull fractures. There is mucus and fluid in the sphenoid sinuses consistent with acute sphenoid sinusitis. Maxillary sinuses are clear as are majority be portal air cells and the frontal sinuses. There are no mastoid effusions evident. No fluid in the middle ear cavities. CTA BRAIN: Both internal carotid arteries are patent in the skull base-carotid canals as well as within the cavernous sinuses. The supraclinoid aspects of both ICAs are patent. No aneurysms evident at this level. Both A1 segments are patent as are the anterior cerebral arteries. There is no evidence of aneurysm at the level the anterior communicating artery Both middle cerebral arteries are patent. No intraluminal thrombus nor dissection. No aneurysms. In the posterior circulation both vertebral arteries contribute to the formation of the basilar artery at this call base. The basilar artery ascends with out significant stenosis. Distally it gives off patent superior cerebellar arteries and above this level terminates as patent bilateral posterior cerebral arteries. There is no aneurysm of the tip of the basilar artery nor elsewhere in the [id number]-[id number]-Ooaivw. There is no evidence of intracranial hemorrhage, mass effect, or shift of midline structures. There are no extra-axial fluid collections. The ventricles are not enlarged or shifted and there is no blood within the ventricular system nor within the basal cisterns. There are no ring enhancing lesions in the brain and there is no abnormal meningeal enhancement, focal or diffuse. IMPRESSION: Patent intracranial arteries. No evidence of significant stenosis nor occlusion. No intracranial aneurysms evident. No evidence of intracranial hemorrhage, intra or extra-axial.. No ring enhancing lesions in the brain and no abnormal meningeal enhancement. There are fluid levels in the sphenoid sinuses consistent with acute sphenoid sinusitis. Preliminary virtual Radiology report was reviewed. RADIATION DOSE DELIVERED: 1,915mGy.cm Total DLP DATA REPOSITORY: All CT scans at this facility are submitted to the National Radiology Data Registry (NRDR) Dose Index Registry (DIR) with the [employer] ([employer]). RADIATION OPTIMIZATION: All CT scans at this facility use at least one of these dose optimization techniques: automated exposure control; mA and/or kV adjustment per patient size (includes targeted exams where dose is matched to clinical indication); or iterative reconstruction.
--- NOTE | 2025-07-08 18:57 | W.ED.GENAD ---
Discharge Plan Disposition Patient Disposition: Home Discharge Details Clinical Impression: Sudden onset of severe headache Primary Care Provider: Brittney Mitchell ED Provider: Washington Azul Home Meds and New Rx's Prescriptions: Continued losartan 50 mg tablet 25 mg PO DAILY Qty: 90 3RF fluticasone propionate [Flonase Allergy Relief] 50 mcg/actuation spray,suspension 1 spray intranasal DAILY Qty: 16 0RF Rx Instructions: administer into each nostril glucosamine [id number] 1 EACH tablet 1 ea PO DAILY cetirizine 10 mg tablet 10 mg PO DAILY Qty: 30 3RF (DME) blood-glucose meter [FreeStyle Lite Meter] Kit See Rx Instructions .ROUTE .MEDSUPPLY Qty: 1 0RF Rx Instructions: Check blood sugar twice a day (DME) blood sugar diagnostic Strip 1 ea Miscellaneous DAILY Qty: 200 4RF Rx Instructions: Check blood sugar twice a day (DME) lancets 28 gauge misc See Rx Instructions .ROUTE .MEDSUPPLY Qty: 200 3RF Rx Instructions: Check blood sugar twice a day levothyroxine 50 mcg tablet 50 mcg PO DAILY Qty: 90 3RF Ubrelvy 50 mg tablet 50 - 100 mg PO Q2H PRN PRN (Reason: headache) Rx Instructions: as a single dose, may repeat dose after 2 hours if needed omeprazole 40 mg capsule,delayed release(DR/EC) 40 mg PO DAILY Qty: 90 3RF Rx Instructions: 1 CAP DAILY tirzepatide 15 mg/0.5 mL pen injector 15 mg subcut QWEEK Qty: 6 3RF pravastatin 40 mg tablet 40 mg PO DAILY Qty: 90 3RF Discharge Instructions Additional Instructions: You are seen in the emergency department for your headache. Your CAT scan fortunately showed no sign of any bleeding in your head. As we discussed if you are symptoms worsen or do not improve or if you have any other concerns please return to the emergency department. Otherwise please follow-up with your primary care provider. If you develop any changes in your vision please also return to the emergency department. Discharge Data Discharge Date/Time-TO BE ENTERED AT DEPARTURE: 07/08/25 23:15 HPI General Date/Time Provider Initiated Documentation: 07/08/25 18:56. HPI Narrative: MDM This is an overall very well-appearing afebrile and not tachycardic 65-year-old diabetic female sudden onset right-sided headache concerning for the possibility of subarachnoid hemorrhage for which patient will undergo CT scan. Given that she is within 6 hours this will likely be sensitive for aneurysmal bleed. She also has family history of aneurysms so we will obtain a CT angiogram. She did report contrast allergy in approximately 1989 secondary to shellfish. Out of abundance of precaution we will premedicate with dexamethasone. Her eye clinically appears to have a conjunctival hemorrhage. This seems coincidental given her ipsilateral headache. Will obtain intraocular pressures. No trauma to eye to suggest corneal abrasion. Will complete slit-lamp exam to ensure that she does not have hyphema. No recent chiropractic manipulation to suggest cervical arterial dissection. No generator exposure to suggest carbon monoxide toxicity. Patient does have slightly elevated blood pressure by my suspicion for reversible cerebral venous constriction syndrome RCVS is low. Patient is not altered to suggest encephalitis. No nuchal rigidity to suggest meningitis notification for lumbar puncture. I considered CVA however the patient is neurologically intact did not feel she required an MRI nor did I think she be a candidate for TNK. No tonic-clonic activity to suggest seizure so no indication for antiseizure medication. I considered Lyme disease however in the absence of rash I did not feel patient required tickborne panel. Patient is not on hormones to suggest increased risk for increased risk for cerebral venous sinus thrombosis so I did not feel she required a CT venogram. No significant dizziness to suggest posterior circulation CVA. Also negative Romberg. 9:[address] scan showed no acute intracranial hemorrhage mass effect or midline shift. Radiology did note concern for acute sphenoid sinusitis. Reassuring basic metabolic panel. CBC with no anemia or thrombocytopenia nor leukocytosis. Patient had a reassuring bedside ultrasound against retinal detachment. Her intraocular pressures were not consistent with acute closed angle glaucoma. 07/09 Late charting due to patient care. I spoke with Dr. Benito Trujillo from from neurology who evaluated the patient. He felt that the patient most likely had variant for migraine. She had felt improved following acetaminophen. We also gave her ketorolac. We discussed that she should return to ED if she develop any worsening headache any syncopal episodes or any trouble with her vision. She understood her return indications and was discharged with empiric trial of expectant outpatient management. HPI This is a patient with a history of migraines presenting with a headache and bleeding in the right eye. The patient reports that her day began normally, with no signs of bleeding in her right eye when she left work. However, upon returning home and washing her hands, she noticed the bleeding. She has never experienced spontaneous bleeding in her eyes before. She does not wear contact lenses and has her eyes checked annually. Approximately 20 minutes later, while preparing dinner, she experienced lightheadedness followed by a sudden onset of headache. This was unusual for her as she has a history of migraines characterized by aura and a zigzag line, but this headache was different. The headache was not severe, but it was persistent. Given her diabetic condition and family history of strokes, she decided to seek medical attention at an urgent care facility. During the visit to the urgent care, she experienced photophobia, particularly in her right eye, which was also painful. Her left eye was unaffected. She reports no coughing, sneezing, lifting, or any other unusual activities at work. She also reports no vomiting or trauma to the eye. Her vision was tested at the urgent care and found to be 20/20. The headache persists, rated at a 2 on a scale of 10, the same intensity as when it first started. She reports no nausea, vomiting, or dizziness, but did experience lightheadedness initially, which resolved after she sat down and rested. Exam General: Well-appearing in no acute distress speaking in complete sentences. Head: Normocephalic, atraumatic. Eye:[Pupils equal, round reactive to light.] Extraocular eye movements intact. On the right eye there is a subconjunctival hemorrhage that is on the nasal side of the right eye occupying less than 20%. No scleral icterus. On slit-lamp exam normal reassuring lids and lashes. Anterior chamber deep and quiet no cells or flare. So conjunctival hemorrhage as noted above. Visual acuity as documented by nursing was right eye 20/30 left eye 20/25. Intraocular pressures were 17 in the right eye and 18 on the left eye. Ear, nose, mouth, throat: Grossly normal inspection. Normal voice, handling secretions normally. Neck: Trachea midline. Cardiovascular: Well-perfused distal extremities. Respiratory: Nonlabored respiration. Gastrointestinal: Nondistended abdomen. Musculoskeletal: No edema. Moving all 4 extremities spontaneously. Skin: Normal for age and race, grossly normal temperature and turgor. No acute rash. Neurologic: Alert and appropriate, no apparent acute deficits. GCS 15. Cranial nerves II through intact grossly. 5 out of 5 bilateral upper lower extremity strength. No dysmetria. No dysdiadochokinesia. Negative Romberg Psychiatric: Mood and manner are appropriate. Grooming and personal hygiene are appropriate. Related Data Home Medications ?Medication ?Instructions ?Recorded ?Confirmed glucosamine HCl 500 mg-msm 83 1 ea PO DAILY 03/27/14 07/08/25 mg-chondroitin 400 mg tablet cetirizine 10 mg tablet 10 mg PO DAILY #30 tab-caps 03/07/19 07/08/25 blood sugar diagnostic #200 ea 03/16/23 07/08/25 blood-glucose meter (FreeStyle #1 ea 03/16/23 07/08/25 Lite Meter kit) lancets 28 gauge #200 ea 03/16/23 07/08/25 levothyroxine 50 mcg tablet 50 mcg PO DAILY #90 tabs 08/08/24 07/08/25 ubrogepant 50 mg tablet (Ubrelvy) 50 - 100 mg PO Q2H PRN PRN headache 10/09/24 07/08/25 fluticasone propionate 50 1 spray intranasal DAILY #16 grams 02/09/25 07/08/25 mcg/actuation nasal spray,suspension (Flonase Allergy Relief) omeprazole 40 mg capsule,delayed 40 mg PO DAILY #90 caps 02/18/25 07/08/25 release losartan 50 mg tablet 25 mg (1/2 x 50 mg) PO DAILY #90 02/27/25 07/08/25 tabs tirzepatide 15 mg/0.5 mL 15 mg (0.5 mL) subcut QWEEK #6 mL 04/16/25 07/08/25 subcutaneous pen injector pravastatin 40 mg tablet 40 mg PO DAILY #90 tabs 05/18/25 07/08/25 Previous Rx's ?Medication ?Instructions ?Recorded cetirizine 10 mg tablet 10 mg PO DAILY #30 tab-caps 03/07/19 blood sugar diagnostic #200 ea 03/16/23 blood-glucose meter (FreeStyle #1 ea 03/16/23 Lite Meter kit) lancets 28 gauge #200 ea 03/16/23 levothyroxine 50 mcg tablet 50 mcg PO DAILY #90 tabs 08/08/24 fluticasone propionate 50 1 spray intranasal DAILY #16 grams 02/09/25 mcg/actuation nasal spray,suspension (Flonase Allergy Relief) omeprazole 40 mg capsule,delayed 40 mg PO DAILY #90 caps 02/18/25 release losartan 50 mg tablet 25 mg (1/2 x 50 mg) PO DAILY #90 02/27/25 tabs tirzepatide 15 mg/0.5 mL 15 mg (0.5 mL) subcut QWEEK #6 mL 04/16/25 subcutaneous pen injector pravastatin 40 mg tablet 40 mg PO DAILY #90 tabs 05/18/25 Allergies Allergy/AdvReac Type Severity Reaction Status Date / Time amoxicillin trihydrate (From Allergy Severe Anaphylaxsi Verified 07/08/25 18:58 Augmentin) s Egg Derived Allergy Severe Topical Verified 07/08/25 18:58 Irritation Fish Containing Products Allergy Severe Anaphylaxsi Verified 07/08/25 18:58 s Iodinated Contrast Media Allergy Severe Anaphylaxis Verified 07/08/25 18:58 iodine Allergy Severe Anaphylaxsi Verified 07/08/25 18:58 s Penicillins Allergy Severe Anaphylaxsi Verified 07/08/25 18:58 s potassium clavulanate (From Allergy Severe Anaphylaxsi Verified 07/08/25 18:58 Augmentin) s shellfish derived Allergy Severe Anaphylaxsi Verified 07/08/25 18:58 s Tetanus Vaccines and Toxoid Allergy Severe ARM Verified 07/08/25 18:58 (Tetanus Vaccines \E&E\ SWELLING Toxoid) fexofenadine HCl (From Allergy Intermediate eye Verified 07/08/25 18:58 Tiffani) swelling Sulfa (Sulfonamide Allergy Intermediate Swelling/Ed Verified 07/08/25 18:58 Antibiotics) zulay venom-honey bee Allergy Intermediate Swelling/Ed Verified 07/08/25 18:58 zulay sulfamethoxazole (From Allergy Swelling/Ed Verified 07/08/25 18:58 Bactrim) zulay trimethoprim (From Bactrim) Allergy Swelling/Ed Verified 07/08/25 18:58 zulay codeine AdvReac Severe upset Verified 07/08/25 18:58 stomach, dizzy lisinopril AdvReac Severe COUGH Verified 07/08/25 18:58 empagliflozin (From AdvReac Mild Yeast Verified 07/08/25 18:58 Jardiance) infections General Stated Complaint: Headache HERMAN: 3 Course Vital Signs Vital signs: Vital Signs Temperature 36.4 C L 07/08/25 18:41 Pulse 67 07/08/25 18:41 Respiratory Rate 12 07/08/25 18:41 Blood Pressure 154/76 H 07/08/25 18:41 Pulse Oximetry 97 07/08/25 18:41 Temperature 36.4 C L 07/08/25 18:41 Temperature Source Oral 07/08/25 18:41 Pulse 67 07/08/25 18:41 Respiratory Rate 12 07/08/25 18:41 Blood Pressure 154/76 H 07/08/25 18:41 Blood Pressure Position Sitting 07/08/25 18:41 Pulse Oximetry 97 07/08/25 18:41 Oxygen Delivery Method Room Air 07/08/25 18:41 Oxygen Flow Rate 0 07/08/25 18:41 PFSH All Active Problems (Updated 07/08/25 @ 22:36 by Washington Azul MD) Sudden onset of severe headache (Acute) Obstructive sleep apnea (Chronic) PSG 2014, CPAP Type 2 diabetes mellitus (Chronic) Essential hypertension (Chronic) Hyperlipidemia (Chronic) Hypothyroidism (Chronic) GERD (gastroesophageal reflux disease) (Chronic) Allergic rhinitis (Chronic) Sigmoid diverticulosis (Chronic) 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) Medical History Allergy to shellfish 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 GI upset Surgical History S/P wrist surgery (~1986) Right H/O elbow surgery (~1994) Left S/P cholecystectomy (~1989) Family History Mother , at 54 of brain aneurysm Brain aneurysm Father , at 65 of lung cancer Lung cancer Heart disease Myocardial infarction Brother , 67 from complications of strokes Hyperlipidemia Stroke Type 2 diabetes mellitus Dementia Heart disease Hypertension Maternal Grandfather , at 72 of [place] Heart disease Myocardial infarction Type 2 diabetes mellitus Maternal Grandmother , at 98 Dementia Essential hypertension Stroke Paternal Grandfather Heart disease Paternal Grandmother , at 69 from emphysema Emphysema lung Social History Smoking/Tobacco Use Status: Never Second Hand Exposure: Yes Smoking risk assessment performed?: Yes Alcohol Intake: current Alcohol Intake frequency: holidays/special occasions only Alcohol type: beer and hard liquor Drug use: Never Substance use type: does not use Caregiver/Support person: No Household members: spouse Housing: house Communication Needs: None Education Level: college Do you need help understanding health information?: Never Pets and animals: Yes Pets and animals: dog(s) Sexually active: No Do you think of yourself as: straight/heterosexual Current gender identity: female What is your relationship status?: How often do you talk on the phone with friends or family?: three or more times per week How often do you get together with friends or relatives?: once per week Do you belong to any clubs or organized social groups?: yes Panel score (0-1 are the most socially isolated patients): 3 What type of physical activity do you participate in: walking and weight lifting Duration: 15-30 minutes/day Frequency: 1-2 times per week Nazanin/Congregational: [employer] Special nazanin needs: No Seatbelt use: always Helmet use: Yes Helmet use: always Drive intox or ride w/intox school bus driver/teacher assistant: No Do you feel safe at home: Yes Do you feel safe in your relationship?: Yes Female Reproductive History Menstrual control method: none Menopause type: natural History History 0 Para Hx # Term Pregnancies Multiple births Hx # Pregnancies Ectopic pregnancies AB induced Hx Number of Living Children AB spontaneous POCUS Exam (ED) Limited Ocular Exam DATE OF EXAM: 07/08/25 TIME OF EXAM: 21:38 PROVIDER THAT PERFORMED THE STUDY: Washington Azul IS THIS A REPEAT EXAM DURING THIS ENCOUNTER: No OCULAR EXAM: Right eye INDICATION FOR RIGHT EYE EXAM: Headache VISUALIZED STRUCTURES: Right optic nerve and Right lens. PERTINENT FINDINGS/IMPRESSION OF THE RIGHT EYE: No apparent abnomalities: DIFFERENTIAL DIAGNOSES: No signs of retinal detachment. No optic disc dilation. Exam complete
[2025-07-08 19:20] LABS: Abs Immature Grans 0.01 10^3/uL (0.0-0.06); HCT 40.1 % (36.0-46.0); HGB 13.5 g/dL (11.2-15.7); Immature Grans % 0.2 %; MCH 27.6 pg (27.0-33.0); MCHC 33.7 % (32.0-36.0); MCV 82 fL (80-95); MPV 11.5 fL (8.0-11.0); Platelet Count 153 10^3/uL (130-400); RBC 4.89 10^6/uL (3.93-5.22); RDW 13.2 % (11.7-14.6); RDW-SD 39.4 fL; WBC 6.54 10^3/uL (4.4-10.8)
[2025-07-08] MEDS: Dexamethasone 4 MG/ML VIAL 8 MG IVP (19:27)
[2025-07-08 19:40] VITALS: BP 154/76; PULSE 67; RESP 12; TEMP 36.4; O2SAT 97
[2025-07-08 19:42] LABS: Anion Gap 5.0 mmol/L (3-11); BUN 12 mg/dL (7-18); CO2 31.0 mmol/L (21.0-32.0); Calcium 8.7 mg/dL (8.5-10.1); Chloride 104 mmol/L (98-107); Estimated GFR 71.83 (mL/min/1.73m2); Glucose 135 mg/dL (74-106); Potassium 3.7 mmol/L (3.5-5.1); Sodium 140 mmol/L (136-145)
[2025-07-08] MEDS: Omnipaque 350 MG/ML 100 ML BTL IJ (20:23)
[2025-07-08] MEDS: Normal Saline - Diluent 50 ML VIAL IJ (20:28)
[2025-07-08] MEDS: Normal Saline Flush 10 ML SYR IVP (20:29)
[2025-07-08] MEDS: Tetracaine 0.5% 4 ML BTL OP (21:10)
--- NOTE | 2025-07-08 21:15 | DI.VRAD_ITS ---
PROCEDURE INFORMATION: Exam: CTA Head Without And With Contrast, Arteriography Exam date and time: 07/08/2025 8:18 PM Age: 65 years old Clinical indication: Pain; Sudden onset headache TECHNIQUE: Imaging protocol: Computed tomographic angiography of the head without and with contrast. Exam focused on the arteries. 3D rendering (Not supervised by radiologist): MIP and/or 3D reconstructed images were created by the technologist. Radiation optimization: All CT scans at this facility use at least one of these dose optimization techniques: automated exposure control; mA and/or kV adjustment per patient size (includes targeted exams where dose is matched to clinical indication); or iterative reconstruction. Contrast material: [id number]; Contrast volume: 70 ml; Contrast route: INTRAVENOUS (IV); COMPARISON: No relevant prior studies available. FINDINGS: ANTERIOR CIRCULATION: Right internal carotid artery: Intracranial segment is patent with no significant stenosis or occlusion. No aneurysm. Right middle cerebral artery: No occlusion or significant stenosis. No aneurysm. Right anterior cerebral artery: No occlusion or significant stenosis. No aneurysm. Left internal carotid artery: Intracranial segment is patent with no significant stenosis. No aneurysm. Left middle cerebral artery: No occlusion or significant stenosis. No aneurysm. Left anterior cerebral artery: No occlusion or significant stenosis. No aneurysm. POSTERIOR CIRCULATION: Right vertebral artery: No occlusion or significant stenosis. No aneurysm. Left vertebral artery: No occlusion or significant stenosis. No aneurysm. Basilar artery: No occlusion or significant stenosis. No aneurysm. Right posterior cerebral artery: No occlusion or significant stenosis. No aneurysm. Left posterior cerebral artery: No occlusion or significant stenosis. No aneurysm. HEAD: Brain: There is no acute intracranial hemorrhage, mass effect or midline shift. There is no large acute territorial cerebral infarct. Cerebral ventricles: Normal. No ventriculomegaly. Bones: No acute fracture. Paranasal sinuses: Air-fluid levels noted throughout the bilateral sphenoid sinuses, concerning for acute sinusitis. Mastoid air cells: Visualized mastoids are normal. No mastoid effusion. Soft tissues: Unremarkable. IMPRESSION: 1. No acute intracranial hemorrhage, mass effect or midline shift. 2. Findings concerning for acute sphenoid sinusitis. Clinical correlation is recommended. 3. No arterial occlusion or significant stenosis. Dictated and Authenticated by: Tash Patel MD. Orderin Jorge Alberto Delarosa MD
[2025-07-08] MEDS: ACETAMINOPHEN 1,000 MG/100 ML BAG 400 MG IVPB (21:16)
[2025-07-08] MEDS: Ketorolac 15 MG/ML VIAL IVP (23:03)
[2025-07-08 23:11] VITALS: BP 158/67; PULSE 62; RESP 16; TEMP 36.7; O2SAT 96
== END 2025-07-08 23:15 | disposition home or self-care (01) ==
PROVIDERS: Emergency Provider Emergency Medicine; PCP Nurse Practitioner Family
DX: R51.9 Headache, unspecified (principal)
CPT/HCPCS: 99285; 99284; 96374; 96375; 70496; 76512; 80048; 85025; J0131; J1100; J1885; J3490

== ENCOUNTER 2025-08-28 14:25 | Outpatient (CLI) | payer OTHER, SELFPAY ==
[2025-08-28 15:54] LABS: ESR 3 mm/hr (0-30)
[2025-08-28 16:13] LABS: Cholesterol 191 mg/dL (<200); HDL Cholesterol 39 mg/dL (>or=50); TSH (W/Ref FT4) 1.60 uIU/mL (0.36-3.74)
[2025-08-28 16:39] LABS: C-Reactive Protein < 0.50 mg/dL (<or=0.5)
[2025-08-31 09:57] LABS: HIV-1/2 Ag & Ab Screen Negative (Negative)
[2025-08-31 10:09] LABS: Hepatitis C Ab w Rflx HCV PCR Negative (Negative)
[2025-08-31 10:22] LABS: HBs Antibody, Quant 126.9 mIU/mL (See Note); Hepatitis B Surface Antigen Negative (Negative)
== END 2025-08-28 14:26 | disposition home or self-care (01) ==
LOC: LOS 14:25
PROVIDERS: PCP Nurse Practitioner Family; Visit Provider Nurse Practitioner Family
DX: R51.9 Headache, unspecified (principal); E11.9 Type 2 diabetes mellitus without complications; E03.9 Hypothyroidism, unspecified; Z11.59 Encounter for screening for other viral diseases; Z11.4 Encounter for screening for human immunodeficiency virus [HIV]
CPT/HCPCS: 36415; 80061; 85652; 86704; 86706; 86803; 87340; 87389; 81003; 82043; 82570; 83036; 84443; 86140

== ENCOUNTER → 2025-09-18 02:43 | Outpatient (CLI) | payer OTHER, SELFPAY ==
--- NOTE | 2025-09-18 08:15 | DI.MAMMO_ITS ---
Exam(s) MAMMO SCREENING EXAM: MAMMO SCREENING CLINICAL HISTORY: screening,Z12.39 TECHNIQUE: Mammograms were interpreted according to the usual protocol including computer analysis with CAD system, tomosynthesis and C-view imaging. COMPARISON: 2015 through 2023 FINDINGS: The breasts are composed of scattered fibroglandular densities, Breast Density category B. No suspicious masses or suspicious microcalcifications are seen. No skin thickening or abnormal axillary lymph nodes are seen. There has been no significant change from prior exams. IMPRESSION: BI-RADS Category 1, Negative mammogram Yearly screening mammography is recommended. Breast Density - Category B - There are scattered areas of fibroglandular density. Breast density Category C or D implies that the patient has dense breast tissue. Dense breast tissue can make it harder to find cancer on a mammogram. Dense breast tissue is also associated with an increased risk of breast cancer. This information about the result of the mammogram report was provided to the patient to raise their awareness. Use this report when you speak with the patient about their risks for breast cancer, which includes their family history. At that time, you may recommend additional screening tests (Ultrasound or MRI) as these tests may add significant information. A negative radiographic report should not delay biopsy if a dominant or clinically suspicious mass is present. Up to ten percent of cancers are not identified on mammography. A negative report may reinforce clinical impression. Adenosis and dense breasts may obscure an underlying neoplasm. False positive reports average 6 to 10%. Patient will receive a letter notifying them of these results.
== END ==
LOC: DI 02:43
PROVIDERS: PCP Nurse Practitioner Family; Visit Provider Nurse Practitioner Family
DX: Z12.31 Encounter for screening mammogram for malignant neoplasm of breast (principal); R92.323 Mammographic fibroglandular density, bilateral breasts
CPT/HCPCS: 77063; 77067

== ENCOUNTER 2025-10-02 13:23 | Outpatient (REF) | payer OTHER, SELFPAY | END 2025-10-02 13:24 | disposition home or self-care (01) | LOC: LBN 13:23 | PROVIDERS: PCP Nurse Practitioner Family; Visit Provider Obstetrics & Gynecology | DX: Z12.4 Encounter for screening for malignant neoplasm of cervix (principal) | CPT/HCPCS: 88142; 87624 ==

== ENCOUNTER 2025-10-23 09:25 | Outpatient (REF) | payer OTHER, SELFPAY | END 2025-10-23 09:26 | disposition home or self-care (01) | LOC: LBN 09:25 | PROVIDERS: PCP Nurse Practitioner Family; Visit Provider Obstetrics & Gynecology | DX: A63.0 Anogenital (venereal) warts (principal) | CPT/HCPCS: 88305 ==